=== PATIENT | female | born 1950 | race Caucasian/White ===

== ENCOUNTER 2020-06-04 17:34 | Emergency (ER) | payer MEDICARE, OTHER ==
[~2020-06-04] VITALS: Ht 165.1 cm; Wt 105.9 kg
[2020-06-04 17:35] VITALS: BP 124/110
[2020-06-04] MEDS ORDERED: ADENOSINE 6 MG/2 ML (ADENOCARD) VIAL IV ONE ×2 (17:39→18:00)
--- NOTE | 2020-06-04 17:54 | ED General ---
General Stated Complaint: FAST HEART RATE,CHEST PAIN,EAR ACHE Source of Information: Patient (MAINE BURCH DO) History of Present Illness Date Seen by Provider: Jun 04, 2020 Time Seen by Provider: 17:30 Initial Comments Patient is a 70-year-old female with history as CT presents acute onset palpitations starting 30 minutes prior to ED arrival. Patient states she just d rink a beer was walking around when symptoms began. Heart rate is described as fast and pounding with associated dizziness fatigue and general sense of unease. Reports chest tightness but denies chest pain. No nausea vomiting or sweats. No other acute symptoms or complaints. Patient arrives by private vehicle with a heart rate noted in the 190s. Patient is unsure of current cardiac medications does not believe she has had diagnostic testing Timing/Duration: 1/2 Hour Severity: Severe Modifying Factors: improves with Other Associated Systoms: Headaches, Weakness (MAINE BURCH DO) Allergies and Home Medications Allergies Coded Allergies: No Known Drug Allergies (Unverified , 06/04/20) Home Medications Lisinopril 10 Mg Tablet, 10 MG PO DAILY, (Reported) Metoprolol Succinate 50 Mg Tab.er.24h, 50 MG PO DAILY, (Reported) Patient Home Medication List Home Medication List Reviewed: Yes (MAINE BURCH DO) Review of Systems Review of Systems Constitutional: see HPI EENTM: see HPI Respiratory: see HPI Cardiovascular: see HPI Gastrointestinal: see HPI Genitourinary: see HPI Musculoskeletal: see HPI Skin: see HPI Psychiatric/Neurological: Anxiety Hematologic/Lymphatic: See HPI Immunological/Allergic: no symptoms reported (MAINE BURCH DO) Past Advdypx-Aldmyt-Ubzsur Hx Past Med/Social Hx: Reviewed Nursing Past Med/Soc Hx (MAINE BURCH DO) Patient Social History Recent Foreign Travel: No Contact w/Someone Who Travel: No (MAINE BURCH DO) Physical Exam Vital Signs Vital Signs - First Documented 06/04/20 17:35 Temp 36.6 Pulse 190 Resp 34 B/P (MAP) 124/110 (115) Pulse Ox 96 O2 Delivery Room Air (MARY ELLEN CANO MD) Vital Signs Capillary Refill : (MAINE BURCH DO) Height, Weight, BMI Height: '" Weight: lbs. oz. kg; BMI Method: General Appearance: Anxious Eyes: Bilateral Eye Normal Inspection, Bilateral Eye PERRL, Bilateral Eye EOMI HEENT: PERRL/EOMI, Pharynx Normal, Moist Mucous Membranes Neck: Non Tender, Supple Respiratory: Chest Non Tender, Lungs Clear Cardiovascular: Tachycardia Gastrointestinal: No Pulsatile Mass, Soft Back: Normal Inspection Extremity: Normal Capillary Refill, Normal Range of Motion, No Calf Tenderness Neurologic/Psychiatric: Alert, Oriented x3 Skin: Normal Color, Warm/Dry (MAINE BURCH DO) Progress/Results/Core Measures Suspected Sepsis SIRS Temperature: Pulse: Respiratory Rate: Blood Pressure / Mean: (MAINE BURCH DO) Results/Orders Lab Results Laboratory Tests Test 06/04/20 17:40 Range/Units White Blood Count 14.0 H 4.3-11.0 10^3/uL Red Blood Count 5.53 4.35-5.85 10^6/uL Hemoglobin 15.3 11.5-16.0 G/DL Hematocrit 47 35-52 % Mean Corpuscular Volume 85 80-99 FL Mean Corpuscular Hemoglobin 28 25-34 PG Mean Corpuscular Hemoglobin Concent 33 32-36 G/DL Red Cell Distribution Width 14.3 10.0-14.5 % Platelet Count 372 130-400 10^3/uL Mean Platelet Volume 10.1 7.4-10.4 FL Neutrophils (%) (Auto) 52 42-75 % Lymphocytes (%) (Auto) 38 12-44 % Monocytes (%) (Auto) 8 0-12 % Eosinophils (%) (Auto) 2 0-10 % Basophils (%) (Auto) 0 0-10 % Neutrophils # (Auto) 7.2 1.8-7.8 X 10^3 Lymphocytes # (Auto) 5.3 H 1.0-4.0 X 10^3 Monocytes # (Auto) 1.2 H 0.0-1.0 X 10^3 Eosinophils # (Auto) 0.2 0.0-0.3 10^3/uL Basophils # (Auto) 0.1 0.0-0.1 10^3/uL Neutrophils % (Manual) 49 % Lymphocytes % (Manual) 24 % Monocytes % (Manual) 10 % Eosinophils % (Manual) 1 % Basophils % (Manual) 0 % Band Neutrophils 4 % Atypical Lymphocytes 12 % Blood Morphology Comment NORMAL Sodium Level 142 135-145 MMOL/L Potassium Level 3.7 3.6-5.0 MMOL/L Chloride Level 102 98-107 MMOL/L Carbon Dioxide Level 21 21-32 MMOL/L Anion Gap 19 H 5-14 MMOL/L Blood Urea Nitrogen 13 7-18 MG/DL Creatinine 0.70 0.60-1.30 MG/DL Estimat Glomerular Filtration Rate > 60 BUN/Creatinine Ratio 19 Glucose Level 101 70-105 MG/DL Calcium Level 9.8 8.5-10.1 MG/DL Corrected Calcium 9.5 8.5-10.1 MG/DL Total Bilirubin 0.3 0.1-1.0 MG/DL Aspartate Amino Transf (AST/SGOT) 50 H 5-34 U/L Alanine Aminotransferase (ALT/SGPT) 72 H 0-55 U/L Alkaline Phosphatase 128 40-136 U/L Troponin I < 0.30 <0.30 NG/ML Total Protein 7.5 6.4-8.2 GM/DL Albumin 4.4 3.2-4.5 GM/DL (MARY ELLEN CANO MD) My Orders Orders - MARY ELLEN CANO MD Labetalol Injection (Normodyne Injection (06/04/20 18:30) (MARY ELLEN CANO MD) Medications Given in ED Current Medications Medications Dose Ordered Sig/Zita Route Start Time Stop Time Status Last Admin Dose Admin Adenosine 12 mg ONCE ONCE IV 06/04/20 18:00 06/04/20 18:01 DC 06/04/20 17:42 12 MG (MARY ELLEN CANO MD) Vital Signs/I&O 06/04/20 06/04/20 17:35 17:35 Temp 36.6 Pulse 190 Resp 34 B/P (MAP) 124/110 (115) Pulse Ox 96 O2 Delivery Room Air Room Air (MARY ELLEN CANO MD) Vital Signs/I&O Capillary Refill : (MAINE BURCH DO) Progress Note : Time: 18:37 Progress Note I assumed care from Dr. Burch at shift change at 1800. I agree with his history of present illness and examination as documented above. 70-year-old female status post cardioversion for apparent AV stanley reentrant tachycardia. Had been in this rhythm for about a half an hour prior to arrival. Upon reassessment after cardioversion with adenosine, patient is resting comfortably in no acute distress. She denies any chest pain or shortness of breath and states she feels back to normal. Post-cardioversion EKG nonischemic. Labs and imaging reviewed and without significant evidence of acute process. The patient has remained rather hypertensive and slightly tachycardic post-cardioversion. I discussed with the patient that in view of her advanced age and diastolic hypertension in the setting of a resolved episode of PSVT, that my recommendation was for an observation admission for echocardiography, attention from the pharmacovigilance scientist and further care as indicated. Patient states that she does not want to be admitted to the hospital and would like to go home as she now feels better. I let her know that we would certainly respect her choice on this but that we would ask her to sign paperwork indicating that she was leaving against our advice. I discussed with her, and she understands and was able to restate in her own words, that there was a risk for decompensation, permanent disability and even and leaving the hospital at this time against my advice when admission for observation was recommended. Patient agreed to accept these risks and be wholly ancillary responsible for them in their entirety. I let her know that if she changed her mind and wished to be further evaluated that she simply needed to return and we will be glad to take care of her. Nader palmer signed AMA paperwork and departed the emergency department with a narrow, steady gait. (MARY ELLEN CANO MD) Departure Communication (Admissions) EKG #1: SCT with heart rate in the 180s. EKG #2: Sinus rhythm heart rate 93, anterior Q waves left ventricular Purtscher fee pattern noted. Symptomatically SVT with heart rate 190s dizziness successfully chemically cardioverted with 12 mg of adenosine 1. Patient resting comfortably after chemical cardioversion. Workup in progress. Care will be transitioned to oncoming ERP at 1800. (MAINE BURCH DO) Impression Primary Impression: Supraventricular tachycardia Disposition: HOME, SELF-CARE Condition: Against Medical Advice Departure-Patient Inst. Referrals: NO,LOCAL PHYSICIAN (PCP/Family) Primary Care Physician Patient Instructions: Paroxysmal Supraventricular Tachycardia (DC) Add. Discharge Instructions: As we discussed, you are leaving against our advice at this time after an episode of tachycardia which we resolved with medication. If you change your mind and wished to be further evaluated and treated, you may return at any time and we will be glad to take care of you. MAINE BURCH DO Jun 04, 2020 17:54 MARY ELLEN CANO MD Jun 04, 2020 18:41
[2020-06-04 17:55] LABS: BASOPHILS % (AUTO) 0 % (0-10); EOSINOPHILS % (AUTO) 2 % (0-10); HEMATOCRIT 47 % (35-52); HEMOGLOBIN 15.3 G/DL (11.5-16.0); LYMPHOCYTES % (AUTO) 38 % (12-44); MEAN CORPUSCULAR HEMOGLOBIN 28 PG (25-34); MEAN CORPUSCULAR HGB CONC 33 G/DL (32-36); MEAN CORPUSCULAR VOLUME 85 FL (80-99); MEAN PLATELET VOLUME 10.1 FL (7.4-10.4); MONOCYTES % (AUTO) 8 % (0-12); NEUTROPHILS # (AUTO) 7.2 X 10^3 (1.8-7.8); NEUTROPHILS % (AUTO) 52 % (42-75); PLATELET COUNT 372 10^3/uL (130-400)
[2020-06-04] MEDS ORDERED: METO50TA7 PO (17:55)
[2020-06-04] MEDS ORDERED: LISI10TA2 PO (17:55)
[2020-06-04 17:57] LABS: BASOPHILS # (AUTO) 0.1 10^3/uL (0.0-0.1); EOSINOPHILS # (AUTO) 0.2 10^3/uL (0.0-0.3); LYMPHOCYTES # (AUTO) 5.3 X 10^3 (1.0-4.0); MONOCYTES # (AUTO) 1.2 X 10^3 (0.0-1.0)
[2020-06-04 18:07] LABS: BAND NEUTROPHILS 4 %; NEUTROPHILS % (MANUAL) 49 %
[2020-06-04 18:08] LABS: ATYPICAL LYMPHOCYTES 12 %; BASOPHILS % (MANUAL) 0 %; EOSINOPHILS % (MANUAL) 1 %; LYMPHOCYTES % (MANUAL) 24 %; MONOCYTES % (MANUAL) 10 %; RBC MORPH NORMAL
[2020-06-04 18:14] LABS: BUN/CREATININE RATIO 19; CARBON DIOXIDE 21 MMOL/L (21-32); CHLORIDE 102 MMOL/L (98-107); GFR ESTIMATED > 60; GLUCOSE 101 MG/DL (70-105); POTASSIUM 3.7 MMOL/L (3.6-5.0); SODIUM 142 MMOL/L (135-145)
[2020-06-04 18:15] LABS: ALANINE AMINOTRANSFERASE 72 U/L (0-55); ALBUMIN 4.4 GM/DL (3.2-4.5); ALKALINE PHOSPHATASE 128 U/L (40-136); BILIRUBIN,TOTAL 0.3 MG/DL (0.1-1.0); CALCIUM 9.8 MG/DL (8.5-10.1); TOTAL PROTEIN 7.5 GM/DL (6.4-8.2)
--- NOTE | 2020-06-04 18:20 | NUR ---
Dr Hunter in to see patient after shift change of Toney. Plan to admit was discussed and patient refusing as she has went home after last Cardioversion in 2013.
[2020-06-04] MEDS ORDERED: LABETALOL HCL 20 MG/4 ML VIAL IV ONE (18:30)
--- NOTE | 2020-06-04 18:30 | NUR ---
Dr Hunter reports to HOLD Normodyne. Pt is refusing admission and no administration to be given with improved BP and pt planning on walking out.
--- NOTE | 2020-06-04 18:32 | Diagnostic Imaging Report ---
INDICATION: Chest pain and tachycardia. EXAMINATION: Chest from 06/04/2020. FINDINGS: The cardiomediastinal silhouette is unremarkable. The pulmonary vasculature is within normal limits. The lungs and pleural spaces are clear. IMPRESSION: No evidence of an acute cardiopulmonary process. Dictated by: Dictated on workstation # [id number]
--- NOTE | 2020-06-04 18:35 | NUR ---
Pt up to bathroom to void for second time. Pt states, "I just drank a beer before I came."
== END 2020-06-04 18:45 | disposition left against medical advice (07) ==
LOC: ER FS 17:36
DX: I47.1 Supraventricular tachycardia (principal); F41.9 Anxiety disorder, unspecified
CPT/HCPCS: 36415; 71045; 80053; 84484; 85007; 85027; 93005

== ENCOUNTER 2021-04-14 13:16 | Emergency (ER) | payer MEDICARE, OTHER ==
[~2021-04-14 13:16] MED LIST: LISI10TA25 PO; METO50TA7 PO
--- NOTE | 2021-04-14 13:20 | ED General ---
General Stated Complaint: COVID + | DISORIENTED | SOB | BACK PAIN History of Present Illness Date Seen by Provider: Apr 14, 2021 Time Seen by Provider: 13:20 Initial Comments 70-year-old female presents with some generalized malaise, mild dizziness, mild feeling of shortness of breath. Patient reports that her symptoms started about a week ago with a headache. 5 days ago she tested positive for Covid. Patient has some generalized body aches and just does not feel well. Patient has not been vaccinated. Allergies and Home Medications Allergies Coded Allergies: No Known Drug Allergies (Unverified , 06/04/20) Home Medications Lisinopril 10 Mg Tablet, 10 MG PO DAILY, (Reported) Metoprolol Succinate 50 Mg Tab.er.24h, 50 MG PO DAILY, (Reported) Patient Home Medication List Home Medication List Reviewed: Yes Review of Systems Review of Systems Constitutional: dizziness, malaise, weakness Respiratory: cough, short of breath; No wheezing Cardiovascular: No chest pain, No palpitations Gastrointestinal: No diarrhea; nausea; No vomiting Genitourinary: no symptoms reported Musculoskeletal: see HPI Skin: no symptoms reported Psychiatric/Neurological: Headache Hematologic/Lymphatic: No Symptoms Reported Immunological/Allergic: no symptoms reported Past Esuguze-Nwsetd-Mhrmjt Hx Seasonal Allergies Seasonal Allergies: No Past Medical History Surgeries: Yes (Bilateral Mastectomy with reconstruction, L Axilla lymph node bx) Breast, Hysterectomy Respiratory: No Cardiac: Yes (SVT conversion 2013) 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, Irregular Heartbeat Neurological: No 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 oz. 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 Norm as Tested Skin: Normal Color, Warm/Dry Focused Exam Lactate Level 04/14/21 13:31: Lactic Acid Level 1.67 Lactic Acid Level Laboratory Tests Test 04/14/21 13:31 Lactic Acid Level 1.67 MMOL/L (0.50-2.00) Progress/Results/Core Measures Suspected Sepsis SIRS Temperature: Pulse: Respiratory Rate: Laboratory Tests 04/14/21 13:31: White Blood Count 4.8 Blood Pressure / Mean: 04/14/21 13:31: Lactic Acid Level 1.67 Laboratory Tests 04/14/21 13:31: Creatinine 1.36H, Platelet Count 164, Total Bilirubin 0.3 Results/Orders Lab Results Laboratory Tests Test 04/14/21 13:31 04/14/21 13:37 Range/Units White Blood Count 4.8 4.3-11.0 10^3/uL Red Blood Count 5.79 4.35-5.85 10^6/uL Hemoglobin 15.9 11.5-16.0 G/DL Hematocrit 48 35-52 % Mean Corpuscular Volume 83 80-99 FL Mean Corpuscular Hemoglobin 27 25-34 PG Mean Corpuscular Hemoglobin Concent 33 32-36 G/DL Red Cell Distribution Width 14.9 H 10.0-14.5 % Platelet Count 164 130-400 10^3/uL Mean Platelet Volume 11.2 H 7.4-10.4 FL Immature Granulocyte % (Auto) 0 % Neutrophils (%) (Auto) 59 42-75 % Lymphocytes (%) (Auto) 28 12-44 % Monocytes (%) (Auto) 13 H 0-12 % Eosinophils (%) (Auto) 0 0-10 % Basophils (%) (Auto) 0 0-10 % Neutrophils # (Auto) 2.8 1.8-7.8 X 10^3 Lymphocytes # (Auto) 1.3 1.0-4.0 X 10^3 Monocytes # (Auto) 0.6 0.0-1.0 X 10^3 Eosinophils # (Auto) 0.0 0.0-0.3 10^3/uL Basophils # (Auto) 0.0 0.0-0.1 10^3/uL Immature Granulocyte # (Auto) 0.0 0.0-0.1 10^3/uL Sodium Level 136 135-145 MMOL/L Potassium Level 4.3 3.6-5.0 MMOL/L Chloride Level 100 98-107 MMOL/L Carbon Dioxide Level 22 21-32 MMOL/L Anion Gap 14 5-14 MMOL/L Blood Urea Nitrogen 17 7-18 MG/DL Creatinine 1.36 H 0.60-1.30 MG/DL Estimat Glomerular Filtration Rate 39 BUN/Creatinine Ratio 13 Glucose Level 115 H 70-105 MG/DL Lactic Acid Level 1.67 0.50-2.00 MMOL/L Calcium Level 9.1 8.5-10.1 MG/DL Corrected Calcium 9.2 8.5-10.1 MG/DL Total Bilirubin 0.3 0.1-1.0 MG/DL Aspartate Amino Transf (AST/SGOT) 38 H 5-34 U/L Alanine Aminotransferase (ALT/SGPT) 26 0-55 U/L Alkaline Phosphatase 76 40-136 U/L Total Protein 7.2 6.4-8.2 GM/DL Albumin 3.9 3.2-4.5 GM/DL Urine Color DARK YELLOW Urine Clarity SLIGHTLY CLOUDY Urine pH 5.5 5-9 Urine Specific Peetz >=1.030 1.016-1.022 Urine Protein TRACE H NEGATIVE Urine Glucose (UA) NEGATIVE NEGATIVE Urine Ketones TRACE H NEGATIVE Urine Nitrite NEGATIVE NEGATIVE Urine Bilirubin 1+ H NEGATIVE Urine Urobilinogen 1.0 < = 1.0 MG/DL Urine Leukocyte Esterase TRACE H NEGATIVE Urine RBC (Auto) NEGATIVE NEGATIVE Urine RBC 5-10 H /HPF Urine WBC 10-25 H /HPF Urine Squamous Epithelial Cells >50 H /HPF Urine Crystals NONE /LPF Urine Bacteria MODERATE H /HPF Urine Casts NONE /LPF Urine Mucus LARGE H /LPF Urine Culture Indicated NO My Orders Orders - SOOD,BRYAN L DO Cbc With Automated Diff (04/14/21 13:25) Comprehensive Metabolic Panel (04/14/21 13:25) Lactic Acid Analyzer (04/14/21 13:25) Ua Culture If Indicated (04/14/21 13:25) Lactated Ringers (Lr 1000 Ml Iv Solution (04/14/21 13:25) Dexamethasone Injection (Decadron Inje (04/14/21 13:30) Chest 1 View Ap/Pa Only (04/14/21 13:26) Medications Given in ED Current Medications Medications Dose Ordered Sig/Zita Route Start Time Stop Time Status Last Admin Dose Admin Dexamethasone Sodium Phosphate 10 mg ONCE ONCE IV 04/14/21 13:30 04/14/21 13:31 DC 04/14/21 13:33 10 MG Vital Signs/I&O 04/14/21 04/14/21 13:18 14:50 Temp 35.7 Pulse 63 57 Resp 16 16 B/P (MAP) 132/99 (110) 144/74 Pulse Ox 97 94 Capillary Refill : Progress Note : Progress Note Patient with known coronavirus. Patient was stable vitals and findings. Discussed with patient supportive care, return the ER as needed, follow-up with her primary care provider as needed. Patient stable will be discharged Diagnostic Imaging Diagonstic Imaging: Xray Plain Films/CT/US/NM/MRI: chest Comments No acute findings or infiltrate noted Departure Impression Primary Impression: COVID-19 Disposition: 01 HOME, SELF-CARE Condition: Stable Departure-Patient Inst. Referrals: NO,LOCAL PHYSICIAN (PCP/Family) Primary Care Physician Patient Instructions: COVID-19 ED Add. Discharge Instructions: Return to the ER with any concerns such as shortness of breath or worsening condition Follow-up with your primary care provider as needed or if not improving over the next 5 to 6 days. BRYAN SOOD DO Apr 14, 2021 13:20
[2021-04-14] MEDS ORDERED: LACTATED RINGERS 1,000 ML IV STA (13:25)
[2021-04-14 13:34] LABS: BASOPHILS % (AUTO) 0 % (0-10); EOSINOPHILS % (AUTO) 0 % (0-10); HEMATOCRIT 48 % (35-52); HEMOGLOBIN 15.9 G/DL (11.5-16.0); LYMPHOCYTES # (AUTO) 1.3 X 10^3 (1.0-4.0); LYMPHOCYTES % (AUTO) 28 % (12-44); MEAN CORPUSCULAR HEMOGLOBIN 27 PG (25-34); MEAN CORPUSCULAR HGB CONC 33 G/DL (32-36); MEAN CORPUSCULAR VOLUME 83 FL (80-99); MEAN PLATELET VOLUME 11.2 FL (7.4-10.4); MONOCYTES # (AUTO) 0.6 X 10^3 (0.0-1.0); MONOCYTES % (AUTO) 13 % (0-12); NEUTROPHILS # (AUTO) 2.8 X 10^3 (1.8-7.8); NEUTROPHILS % (AUTO) 59 % (42-75); PLATELET COUNT 164 10^3/uL (130-400); WHITE BLOOD COUNT 4.8 10^3/uL (4.3-11.0)
[2021-04-14 13:38] LABS: CLARITY,URINE SLIGHTLY CLOUDY; COLOR,URINE DARK YELLOW
[2021-04-14 13:43] LABS: BACTERIA,URINE MODERATE /HPF; BILIRUBIN,URINE 1+ (NEGATIVE); GLUCOSE, URINE (UA) NEGATIVE (NEGATIVE); KETONES,URINE TRACE (NEGATIVE); LEUKOCYTE ESTERASE ,URINE TRACE (NEGATIVE); NITRITE,URINE NEGATIVE (NEGATIVE); PH,URINE 5.5 (5-9); PROTEIN,URINE TRACE (NEGATIVE); SQUAMOUS EPITHELIAL CELL,UR >50 /HPF
[2021-04-14 13:53] LABS: ALBUMIN 3.9 GM/DL (3.2-4.5); BILIRUBIN,TOTAL 0.3 MG/DL (0.1-1.0); CALCIUM 9.1 MG/DL (8.5-10.1); CREATININE SERUM 1.36 MG/DL (0.60-1.30); POTASSIUM 4.3 MMOL/L (3.6-5.0); TOTAL PROTEIN 7.2 GM/DL (6.4-8.2)
[2021-04-14 14:50] VITALS: BP 144/74
== END 2021-04-14 14:51 | disposition home or self-care (01) ==
LOC: EDUNIT# 13:16 → ER FS 13:18
DX: U07.1 COVID-19 (principal); I10 Essential (primary) hypertension; Z79.899 Other long term (current) drug therapy
CPT/HCPCS: 36415; 71045; 80053; 81000; 83605; 85025

== ENCOUNTER 2021-04-16 19:19 | Inpatient (IN) | payer MEDICARE, OTHER ==
[~2021-04-16] VITALS: Ht 165.1 cm; Wt 100.1 kg
--- NOTE | 2021-04-16 19:22 | ED General ---
General Stated Complaint: COVID History of Present Illness Date Seen by Provider: Apr 16, 2021 Time Seen by Provider: 19:22 Initial Comments Patient presenting to emergency department via EMS for evaluation of altered mental status. Patient reportedly has only been out of bed one time today per a friend and has not been drinking much fluids and was sent here for increased confusion. Patient reportedly started having Covid symptoms 7 days ago and tested +5 days ago and was seen in this emergency department 2 days ago. She had normal work-up and vital signs at that time and was sent home. Today patient is more confused that she is usually alert and oriented x3 but she was confused on date as she did not know the year which is very abnormal for her. Staff who took care of her 2 days ago said that she is much more confused than last time as she does not know her medications and date. She denies any pain fevers nausea vomiting or diarrhea. She reportedly had an oxygen saturation of 90% for EMS and she was put on 4 L. She is in no acute distress with normal vital signs with an oxygen saturation of 94% on room air. Allergies and Home Medications Allergies Coded Allergies: No Known Drug Allergies (Unverified , 06/04/20) Home Medications Lisinopril 10 Mg Tablet, 10 MG PO DAILY, (Reported) Metoprolol Succinate 50 Mg Tab.er.24h, 50 MG PO DAILY, (Reported) Patient Home Medication List Home Medication List Reviewed: Yes Review of Systems Review of Systems Constitutional: no symptoms reported EENTM: no symptoms reported Respiratory: no symptoms reported Cardiovascular: no symptoms reported Gastrointestinal: no symptoms reported Musculoskeletal: no symptoms reported Skin: no symptoms reported Psychiatric/Neurological: Other (confusion) All Other Systems Reviewed Negative Unless Noted: Yes Past Gmgtimy-Xgdqrr-Ufgxuh Hx Seasonal Allergies Seasonal Allergies: No Past Medical History Surgeries: Yes (Bilateral Mastectomy with reconstruction, L Axilla lymph node bx) Breast, Hysterectomy Respiratory: No Cardiac: Yes (SVT conversion 2013) 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, Irregular Heartbeat 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 oz. kg; 38.00 BMI Method: General Appearance: No Apparent Distress HEENT: PERRL/EOMI Neck: Supple Respiratory: Lungs Clear, No Respiratory Distress Cardiovascular: Regular Rate, Rhythm Gastrointestinal: Non Tender, Soft Extremity: Normal Capillary Refill Neurologic/Psychiatric: Alert, Disoriented Skin: Warm/Dry Focused Exam Lactate Level 04/16/21 19:27: Lactic Acid Level 1.08 Lactic Acid Level Laboratory Tests Test 04/16/21 19:27 Lactic Acid Level 1.08 MMOL/L (0.50-2.00) Progress/Results/Core Measures Suspected Sepsis SIRS Temperature: Pulse: Respiratory Rate: Laboratory Tests 04/16/21 19:27: White Blood Count 4.2L Blood Pressure / Mean: 04/16/21 19:27: Lactic Acid Level 1.08 Laboratory Tests 04/16/21 19:27: Creatinine 0.81, INR Comment 1.0, Platelet Count 163, Total Bilirubin 0.4 Results/Orders Lab Results Laboratory Tests Test 04/16/21 19:27 04/16/21 19:56 04/16/21 20:28 Range/Units White Blood Count 4.2 L 4.3-11.0 10^3/uL Red Blood Count 5.18 4.35-5.85 10^6/uL Hemoglobin 14.3 11.5-16.0 G/DL Hematocrit 43 35-52 % Mean Corpuscular Volume 83 80-99 FL Mean Corpuscular Hemoglobin 28 25-34 PG Mean Corpuscular Hemoglobin Concent 33 32-36 G/DL Red Cell Distribution Width 14.7 H 10.0-14.5 % Platelet Count 163 130-400 10^3/uL Mean Platelet Volume 11.6 H 7.4-10.4 FL Immature Granulocyte % (Auto) 1 % Neutrophils (%) (Auto) 59 42-75 % Lymphocytes (%) (Auto) 28 12-44 % Monocytes (%) (Auto) 13 H 0-12 % Eosinophils (%) (Auto) 0 0-10 % Basophils (%) (Auto) 0 0-10 % Neutrophils # (Auto) 2.5 1.8-7.8 X 10^3 Lymphocytes # (Auto) 1.2 1.0-4.0 X 10^3 Monocytes # (Auto) 0.6 0.0-1.0 X 10^3 Eosinophils # (Auto) 0.0 0.0-0.3 10^3/uL Basophils # (Auto) 0.0 0.0-0.1 10^3/uL Immature Granulocyte # (Auto) 0.0 0.0-0.1 10^3/uL Prothrombin Time 13.4 12.2-14.7 SEC INR Comment 1.0 0.8-1.4 Activated Partial Thromboplast Time 26 24-35 SEC D-Dimer 0.92 H 0.00-0.49 UG/ML Sodium Level 136 135-145 MMOL/L Potassium Level 4.8 3.6-5.0 MMOL/L Chloride Level 101 98-107 MMOL/L Carbon Dioxide Level 21 21-32 MMOL/L Anion Gap 14 5-14 MMOL/L Blood Urea Nitrogen 11 7-18 MG/DL Creatinine 0.81 0.60-1.30 MG/DL Estimat Glomerular Filtration Rate 70 BUN/Creatinine Ratio 14 Glucose Level 85 70-105 MG/DL Lactic Acid Level 1.08 0.50-2.00 MMOL/L Calcium Level 8.6 8.5-10.1 MG/DL Corrected Calcium 9.1 8.5-10.1 MG/DL Total Bilirubin 0.4 0.1-1.0 MG/DL Aspartate Amino Transf (AST/SGOT) 35 H 5-34 U/L Alanine Aminotransferase (ALT/SGPT) 18 0-55 U/L Alkaline Phosphatase 62 40-136 U/L Troponin I < 0.30 <0.30 NG/ML Pro-B-Type Natriuretic Peptide 295.4 H <75.0 PG/ML Total Protein 6.7 6.4-8.2 GM/DL Albumin 3.4 3.2-4.5 GM/DL Urine Color YELLOW Urine Clarity CLEAR Urine pH 6.5 5-9 Urine Specific [place] 1.010 L 1.016-1.022 Urine Protein NEGATIVE NEGATIVE Urine Glucose (UA) NEGATIVE NEGATIVE Urine Ketones 1+ H NEGATIVE Urine Nitrite NEGATIVE NEGATIVE Urine Bilirubin 1+ H NEGATIVE Urine Urobilinogen 0.2 < = 1.0 MG/DL Urine Leukocyte Esterase NEGATIVE NEGATIVE Urine RBC (Auto) NEGATIVE NEGATIVE Urine RBC 0-2 /HPF Urine WBC 0-2 /HPF Urine Squamous Epithelial Cells 0-2 /HPF Urine Crystals NONE /LPF Urine Bacteria NEGATIVE /HPF Urine Casts NONE /LPF Urine Mucus NEGATIVE /LPF Urine Yeast FEW H /HPF Urine Culture Indicated NO Blood Gas Puncture Site LT BRACHIAL Blood Gas Patient Temperature 99 Arterial Blood pH 7.43 7.37-7.43 Arterial Blood Partial Pressure CO2 30 L 35-45 MMHG Arterial Blood Partial Pressure O2 78 L 79-93 MMHG Arterial Blood HCO3 20 L 23-27 MMOL/L Arterial Blood Total CO2 20.8 L 21.0-31.0 MMOL/L Arterial Blood Oxygen Saturation 96 94-100 % Arterial Blood Base Excess -3.4 L -2.5-2.5 MMOL/L Ryan Test NA Blood Gas Ventilator Setting NO Blood Gas Inspired Oxygen ROOM AIR My Orders Orders - CHITRA MONACO DO Iv/Invasive Line Insertion .IV start (04/16/21 19:22) Arterial Blood Gas (04/16/21 19:22) Cbc With Automated Diff (04/16/21 19:22) Blood Culture (04/16/21 19:22) Comprehensive Metabolic Panel (04/16/21 19:22) Fibrin Degradation Products (04/16/21 19:22) Ekg Tracing (04/16/21 19:22) Chest 1 View Ap/Pa Only (04/16/21 19:22) Ua Culture If Indicated (04/16/21 19:22) Troponin I Fs (04/16/21 19:22) Partial Thromboplastin Time (04/16/21 19:22) Probnp Fs (04/16/21 19:22) Protime With Inr (04/16/21 19:22) Lactic Acid Analyzer (04/16/21 19:22) Ns Iv 1000 Ml (Sodium Chloride 0.9%) (04/16/21 19:30) Dexamethasone Injection (Decadron Injec (04/16/21 19:30) Dexamethasone Injection (Decadron Inje (04/16/21 19:30) Blood Culture (04/16/21 19:37) Ct Head Wo (04/16/21 19:49) Ct Angio Chest W (04/16/21 20:40) Iohexol Injection (Omnipaque 350 Mg/Ml 1 (04/16/21 20:45) Received Contrast (Hold Metformin- Contr (04/16/21 20:45) Ns (Ivpb) (Sodium Chloride 0.9% Ivpb Bag (04/16/21 20:45) Medications Given in ED Current Medications Medications Dose Ordered Sig/Zita Route Start Time Stop Time Status Last Admin Dose Admin Dexamethasone Sodium Phosphate 6 mg ONCE ONCE IV 04/16/21 19:30 04/16/21 19:31 DC 04/16/21 19:39 6 MG Vital Signs/I&O 04/16/21 19:20 Temp 37.5 Pulse 77 Resp 20 B/P (MAP) 143/103 (116) Pulse Ox 92 O2 Delivery Room Air Capillary Refill : Progress Note : Progress Note Patient with worsened confusion in the setting of positive Covid test. CVA is a consideration but she is moving all extremities with good strength and there does not appear to be a focal deficit. I will check labs imaging treat with IV fluids Decadron and reassess. Imaging shows signs of Covid pneumonia. She is slightly hypoxic but not requiring oxygen at this time. Decadron has been given and I spoke to Dr. Segundo and we will plan on giving remdesivir given she is in the timeframe as her symptoms started 1 week ago. She will require admission given her acute encephalopathy in the setting of her pneumonia. Patient will be transferred in stable condition to [facility]. Critical Care Note Critical Care Total Time (minutes) 32 Departure Impression Primary Impression: Pneumonia due to COVID-19 virus Additional Impression: Acute encephalopathy Disposition: ADMITTED INPATIENT Condition: Stable Transfer Transfer Reason: Exceeds level of care Transfer Facility: [facility] Method of Transfer: EMS Departure-Patient Inst. Referrals: NO,LOCAL PHYSICIAN (PCP/Family) Primary Care Physician CHITRA MONACO DO Apr 16, 2021 19:22
[2021-04-16] MEDS ORDERED: NS IV 1000 ML 1,000 ML IV SCH (19:30)
[2021-04-16 19:43] LABS: WHITE BLOOD COUNT 4.2 10^3/uL (4.3-11.0)
[2021-04-16 19:44] LABS: BASOPHILS % (AUTO) 0 % (0-10); EOSINOPHILS % (AUTO) 0 % (0-10); HEMATOCRIT 43 % (35-52); HEMOGLOBIN 14.3 G/DL (11.5-16.0); LYMPHOCYTES # (AUTO) 1.2 X 10^3 (1.0-4.0); LYMPHOCYTES % (AUTO) 28 % (12-44); MEAN CORPUSCULAR HEMOGLOBIN 28 PG (25-34); MEAN CORPUSCULAR HGB CONC 33 G/DL (32-36); MEAN CORPUSCULAR VOLUME 83 FL (80-99); MEAN PLATELET VOLUME 11.6 FL (7.4-10.4); MONOCYTES # (AUTO) 0.6 X 10^3 (0.0-1.0); MONOCYTES % (AUTO) 13 % (0-12); NEUTROPHILS # (AUTO) 2.5 X 10^3 (1.8-7.8); NEUTROPHILS % (AUTO) 59 % (42-75); PLATELET COUNT 163 10^3/uL (130-400)
--- NOTE | 2021-04-16 19:53 | Diagnostic Imaging Report ---
EXAMINATION: Chest radiograph, portable AP view. DATE: 04/16/2021 7:45 PM INDICATION: 70-year-old female, shortness of breath. Covid positive. COMPARISON: April 14, 2021. FINDINGS: Stable overall appearance of the cardiomediastinal silhouette. There is no identified pneumothorax. There is nonspecific left mid and lower lung zone consolidation. There are subtle opacities in the right lung base. Findings are increased since the comparison exam. There are also increased opacities in left upper lobe. IMPRESSION: 1. Nonspecific left mid and lower lung zone consolidation and subtle right basilar airspace consolidation with opacities in the left upper lobe which may reflect multifocal pneumonia and/or pneumonitis. Other alveolar consolidative processes are also considered. Dictated by: Dictated on workstation # [id number]
[2021-04-16 20:33] LABS: POTASSIUM 4.8 MMOL/L (3.6-5.0); SODIUM 136 MMOL/L (135-145)
[2021-04-16 20:34] LABS: ALANINE AMINOTRANSFERASE 18 U/L (0-55); ALBUMIN 3.4 GM/DL (3.2-4.5); ALKALINE PHOSPHATASE 62 U/L (40-136); BILIRUBIN,TOTAL 0.4 MG/DL (0.1-1.0); BUN/CREATININE RATIO 14; CALCIUM 8.6 MG/DL (8.5-10.1); CARBON DIOXIDE 21 MMOL/L (21-32); CHLORIDE 101 MMOL/L (98-107); CREATININE SERUM 0.81 MG/DL (0.60-1.30); GFR ESTIMATED 70; GLUCOSE 85 MG/DL (70-105); TOTAL PROTEIN 6.7 GM/DL (6.4-8.2)
[2021-04-16 20:35] LABS: ABG PCO2 30 MMHG (35-45); ABG PH 7.43 (7.37-7.43); ABG PO2 78 MMHG (79-93); ABG TCO2 20.8 MMOL/L (21.0-31.0)
[2021-04-16 20:36] LABS: ABG BASE EXCESS -3.4 MMOL/L (-2.5-2.5); ABG OXYGEN SATURATION 96 % (94-100)
[2021-04-16 20:37] LABS: INSPIRED O2 ROOM AIR; PATIENT TEMP 99; VENTILATOR NO
[2021-04-16 20:38] LABS: FIBRIN DEGRADATION PRODUCTS 0.92 UG/ML (0.00-0.49); PROTHROMBIN TIME PATIENT 13.4 SEC (12.2-14.7)
[2021-04-16 20:44] LABS: CLARITY,URINE CLEAR; COLOR,URINE YELLOW; PH,URINE 6.5 (5-9); PROTEIN,URINE NEGATIVE (NEGATIVE)
[2021-04-16 20:45] LABS: BACTERIA,URINE NEGATIVE /HPF; BILIRUBIN,URINE 1+ (NEGATIVE); GLUCOSE, URINE (UA) NEGATIVE (NEGATIVE); KETONES,URINE 1+ (NEGATIVE); LEUKOCYTE ESTERASE ,URINE NEGATIVE (NEGATIVE); NITRITE,URINE NEGATIVE (NEGATIVE); RBC,URINE 0-2 /HPF; SQUAMOUS EPITHELIAL CELL,UR 0-2 /HPF; WBC,URINE 0-2 /HPF
[2021-04-16] MEDS ORDERED: IOHEXOL 350 MG/ML 150 ML (OMNIPAQUE 350) VIAL IV ONE (20:45)
[2021-04-16] MEDS ORDERED: HOLD METFORMIN - RECEIVED CONTRAST 20 ML VIAL IV SCH (20:45)
[2021-04-16] MEDS ORDERED: NS 100 ML (IVPB) BAG IV ONE (20:45)
[2021-04-16 20:48] LABS: YEAST,URINE FEW /HPF
--- NOTE | 2021-04-16 21:24 | Diagnostic Imaging Report ---
PROCEDURE: CT head without contrast. TECHNIQUE: Multiple contiguous axial images were obtained through the brain without the use of intravenous contrast. Auto Exposure Controls were utilized during the CT exam to meet ALARA standards for radiation dose reduction. DATE: April 16, 2021. COMPARISON: None. INDICATION: 70-year-old female, altered mental status. FINDINGS: There are areas of low-attenuation in the periventricular and subcortical white matter which are not clearly symmetric such as in the left frontal lobe subcortical white matter on axial image 21. The ventricles and cerebral spinal fluid spaces are of normal size and configuration for the patient's age. There is no mass effect or midline shift. There is no acute intracranial hemorrhage. Right frontal sinus is hypoplastic. The additional visualized portions of the paranasal sinuses, mastoid air cells, and middle ears are well-aerated. IMPRESSION: 1. Areas of low-attenuation in the periventricular and subcortical white matter including one focus in particular in the left frontal subcortical white matter which is not particularly symmetric. Although this could relate to mild to moderate findings of chronic small vessel ischemic disease, other etiologies are in the differential diagnosis. Consider further evaluation with MRI brain without and with intravenous contrast. Dictated by: Dictated on workstation # [id number]
--- NOTE | 2021-04-16 21:31 | Diagnostic Imaging Report ---
PROCEDURE: CT angiography of the chest with contrast. TECHNIQUE: Multiple contiguous axial images were obtained through the chest after uneventful bolus administration of intravenous contrast. 3D reconstructed CTA MIP acquisitions were also performed. Auto Exposure Controls were utilized during the CT exam to meet ALARA standards for radiation dose reduction. DATE: April 16, 2021. COMPARISON: Chest radiograph April 16, 2021. INDICATION: 70-year-old female, shortness of breath. Covid positive. History of breast cancer and melanoma. FINDINGS: There is patchy multifocal bilateral alveolar consolidation. There are subcentimeter calcified right lower lobe granulomas. There is no identified noncalcified pulmonary nodule. There is no identified lung mass. There is no pneumothorax. There is no pleural effusion. The central airways are patent. There is no identified pulmonary embolus. The main pulmonary artery is normal in caliber. The heart is borderline enlarged. There is no pericardial effusion. There is no identified abnormally enlarged noncalcified mediastinal, hilar, or axillary lymph node meeting CT size criteria for adenopathy. There are bilateral breast implants. There is diffuse fatty infiltration of the liver. There is a small hiatal hernia. There are degenerative changes of the spine. There is no identified acute bony abnormality. IMPRESSION: CT CHEST. 1. Patchy multifocal bilateral lung consolidation most consistent with provided history of Covid 19 infection and multifocal pneumonia/pneumonitis. 2. No identified pulmonary embolus. Dictated by: Dictated on workstation # [id number]
[2021-04-17] VITALS (7 sets, daily range): BP systolic 156–189; BP diastolic 80–130
[2021-04-17] MEDS ORDERED: CATHETER FLUSH 10 ML SYR IV PRN (01:30)
[2021-04-17 04:18] LABS: BASOPHILS % (AUTO) 0 % (0-10); EOSINOPHILS % (AUTO) 0 % (0-10); HEMATOCRIT 46 % (35-52); HEMOGLOBIN 15.2 g/dL (11.5-16.0); LYMPHOCYTES # (AUTO) 0.8 10^3/uL (1.0-4.0); LYMPHOCYTES % (AUTO) 29 % (12-44); MEAN CORPUSCULAR HEMOGLOBIN 28 pg (25-34); MEAN CORPUSCULAR HGB CONC 33 g/dL (32-36); MEAN CORPUSCULAR VOLUME 84 fL (80-99); MEAN PLATELET VOLUME 11.2 fL (9.0-12.2); MONOCYTES # (AUTO) 0.2 10^3/uL (0.0-1.0); MONOCYTES % (AUTO) 6 % (0-12); NEUTROPHILS # (AUTO) 1.7 10^3/uL (1.8-7.8); NEUTROPHILS % (AUTO) 64 % (42-75); PLATELET COUNT 172 10^3/uL (130-400); WHITE BLOOD COUNT 2.7 10^3/uL (4.3-11.0)
[2021-04-17 04:29] LABS: ALBUMIN 3.8 GM/DL (3.2-4.5); POTASSIUM 4.2 MMOL/L (3.6-5.0)
[2021-04-17 04:30] LABS: CALCIUM 8.9 MG/DL (8.5-10.1)
[2021-04-17 04:31] LABS: TOTAL PROTEIN 6.9 GM/DL (6.4-8.2)
[2021-04-17 04:33] LABS: BILIRUBIN,TOTAL 0.5 MG/DL (0.1-1.0)
[2021-04-17 04:35] LABS: CREATININE SERUM 0.72 MG/DL (0.60-1.30)
[2021-04-17] MEDS ORDERED: REMDESIVIR 200 MG/NS 250 ML IVPB IV ONE ×2 (07:00)
[2021-04-17] MEDS: CATHETER FLUSH 10 ML SYR IV SCH ×3 (07:01→21:21)
--- NOTE | 2021-04-17 09:09 | History & Physical-Hospitalist ---
History of Present Illness HPI/Chief Complaint Pt is a 70yoCF with a PMH of HTn and breast cancer s/p masectomy who presented to the ER due to confusion. She doesn't recall much of the ER visit but was able to tell me that she was diagnosed with COVID a couple of days ago and started to feel poorly a few days ago. She has shortness of breath, confusion, loss of tas te but not nausea or diarrhea. This morning her only complaint is that her bed is flat and she would like to sit up but the controls are locked. I did speak with her daughter, Yohana, as well. Source: patient Date Seen 04/17/21 Time Seen by a Provider: 08:46 Attending Physician Sonido Segundo MD PCP David Levi MD Referring Physician Date of Admission Apr 17, 2021 at 00:40 Home Medications & Allergies Home Medications Reviewed patient Home Medication Reconciliation performed by pharmacy medication reconciliations staking technician and/or nursing. Patients Allergies have been reviewed. Allergies Allergies Coded Allergies No Known Drug Allergies (Unverified06/04/20) Past Niossmn-Rehrbu-Vpnftq Hx Patient Social History Tobacco Use?: No Smoking Status: Never a Smoker Use of E-Cig and/or Vaping dev: No Substance use?: No Alcohol Use?: No Pt feels they are or have been: No Immunizations Up To Date Tetanus Booster (TDap): Unknown Seasonal Allergies Seasonal Allergies: No Current Status status: No status: No Advance Directives: No Communicates: Verbally Primary Language: South Korean Preferred Spoken Language: [place] Korean Is interpretation needed?: No Sensory deficits: Vision impairment Implanted or Applied Medical D: None Past Medical History Surgeries: Breast, Hysterectomy 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, 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, 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 Did You Recieve Any Treatments: Yes What Type of Treatment Did You: Surgical Intervention Blood Disorders: No Family Medical History Reviewed Nursing Family Hx No Pertinent Family Hx Review of Systems Constitutional: No chills, No fever; malaise EENTM: no symptoms reported Respiratory: No short of breath Cardiovascular: No chest pain Gastrointestinal: No abdominal pain, No constipation, No diarrhea; loss of appetite; No nausea, No vomiting Genitourinary: no symptoms reported Musculoskeletal: no symptoms reported Skin: no symptoms reported Psychiatric/Neurological: See HPI Physical Exam Physical Exam Vital Signs Vital Signs - First Documented 04/16/21 04/17/21 19:20 11:23 Temp 37.5 Pulse 77 Resp 20 B/P (MAP) 143/103 (116) Pulse Ox 92 O2 Delivery Room Air O2 Flow Rate 3.50 Capillary Refill : Less Than 3 Seconds Height, Weight, BMI Height: '" Weight: lbs. oz. kg; 37.42 BMI Method: General Appearance: No Apparent Distress, WD/WN, Obese HEENT: PERRL/EOMI, Moist Mucous Membranes; No Scleral Icterus (L), No Scleral Icterus (R) Neck: Normal Inspection, Supple Respiratory: Lungs Clear, No Accessory Muscle Use, Other (on 3lpm NC) Cardiovascular: Regular Rate, Rhythm, No Murmur Gastrointestinal: Normal Bowel Sounds, Non Tender, Soft Extremity: Normal Capillary Refill, No Calf Tenderness, No Pedal Edema Neurologic/Psychiatric: Alert, Oriented x3, Normal Mood/Affect Skin: Normal Color, Warm/Dry Results Results/Procedures Labs Laboratory Tests 04/16/21 19:27 04/17/21 04:05 Patient resulted labs reviewed. Imaging: Reviewed Imaging Report Imaging [facility] [place], [place] NAME: GAVINO [facility]RO[facility] REC#: [id number] PT STATUS: REG ER : 1950 PHYSICIAN: CHITRA MONACO DO ADMIT DATE: 04/16/21/ER FS Signed Date of Exam:04/16/21 CHEST 1 VIEW AP/PA ONLY EXAMINATION: Chest radiograph, portable AP view. DATE: 04/16/2021 7:45 PM INDICATION: 70-year-old female, shortness of breath. Covid positive. COMPARISON: April 14, 2021. FINDINGS: Stable overall appearance of the cardiomediastinal silhouette. There is no identified pneumothorax. There is nonspecific left mid and lower lung zone consolidation. There are subtle opacities in the right lung base. Findings are increased since the comparison exam. There are also increased opacities in left upper lobe. IMPRESSION: 1. Nonspecific left mid and lower lung zone consolidation and subtle right basilar airspace consolidation with opacities in the left upper lobe which may reflect multifocal pneumonia and/or pneumonitis. Other alveolar consolidative processes are also considered. Dictated by: Dictated on workstation # [id number] Dict: 04/16/211946 Trans: 04/16/212131 [facility] [id number] Interpreted by: BISI MCQUEEN MD Electronically signed by: BISI MCQUEEN MD 04/16/212131 [facility] [place] NAME: GAVINO [facility]RO[facility] REC#: [id number] PT STATUS: REG ER : 1950 PHYSICIAN: CHITRA MONACO DO ADMIT DATE: 04/16/21/ER FS Signed Date of Exam:04/16/21 CT HEAD WO PROCEDURE: CT head without contrast. TECHNIQUE: Multiple contiguous axial images were obtained through the brain without the use of intravenous contrast. Auto Exposure Controls were utilized during the CT exam to meet ALARA standards for radiation dose reduction. DATE: April 16, 2021. COMPARISON: None. INDICATION: 70-year-old female, altered mental status. FINDINGS: There are areas of low-attenuation in the periventricular and subcortical white matter which are not clearly symmetric such as in the left frontal lobe subcortical white matter on axial image 21. The ventricles and cerebral spinal fluid spaces are of normal size and configuration for the patient's age. There is no mass effect or midline shift. There is no acute intracranial hemorrhage. Right frontal sinus is hypoplastic. The additional visualized portions of the paranasal sinuses, mastoid air cells, and middle ears are well-aerated. IMPRESSION: 1. Areas of low-attenuation in the periventricular and subcortical white matter including one focus in particular in the left frontal subcortical white matter which is not particularly symmetric. Although this could relate to mild to moderate findings of chronic small vessel ischemic disease, other etiologies are in the differential diagnosis. Consider further evaluation with MRI brain without and with intravenous contrast. Dictated by: Dictated on workstation # [id number] Dict: 04/16/212119 Trans: 04/16/212131 [facility] [id number] Interpreted by: BISI MCQUEEN MD Electronically signed by: BISI MCQUEEN MD 04/16/212131 [facility] [place] NAME: GAVINO [facility] REC#: [id number] PT STATUS: REG ER : 1950 PHYSICIAN: CHITRA MONACO DO ADMIT DATE: 04/16/21/ER FS Signed Date of Exam:04/16/21 CT ANGIO CHEST W PROCEDURE: CT angiography of the chest with contrast. TECHNIQUE: Multiple contiguous axial images were obtained through the chest after uneventful bolus administration of intravenous contrast. 3D reconstructed CTA MIP acquisitions were also performed. Auto Exposure Controls were utilized during the CT exam to meet ALARA standards for radiation dose reduction. DATE: April 16, 2021. COMPARISON: Chest radiograph April 16, 2021. INDICATION: 70-year-old female, shortness of breath. Covid positive. History of breast cancer and melanoma. FINDINGS: There is patchy multifocal bilateral alveolar consolidation. There are subcentimeter calcified right lower lobe granulomas. There is no identified noncalcified pulmonary nodule. There is no identified lung mass. There is no pneumothorax. There is no pleural effusion. The central airways are patent. There is no identified pulmonary embolus. The main pulmonary artery is normal in caliber. The heart is borderline enlarged. There is no pericardial effusion. There is no identified abnormally enlarged noncalcified mediastinal, hilar, or axillary lymph node meeting CT size criteria for adenopathy. There are bilateral breast implants. There is diffuse fatty infiltration of the liver. There is a small hiatal hernia. There are degenerative changes of the spine. There is no identified acute bony abnormality. IMPRESSION: CT CHEST. 1. Patchy multifocal bilateral lung consolidation most consistent with provided history of Covid 19 infection and multifocal pneumonia/pneumonitis. 2. No identified pulmonary embolus. Dictated by: Dictated on workstation # [id number] Dict: 04/16/212121 Trans: 04/16/212131 [facility] [id number] Interpreted by: BISI MCQUEEN MD Electronically signed by: BISI MCQUEEN MD 04/16/212131 Assessment/Plan Admission Diagnosis Acute hypoxic respiratory failure due to COVID19 Admission Status: Inpatient Order (span 2 midnights) Reason for Inpatient Admission: see below Assessment and Plan Acute hypoxic respiratory failure due to COVID19 Symptoms onset 1 week ago Anticipate worsening before improvement, informed patient and daughter of this Start on Remdesivir Continue decadron Offered convalescent plasma- patient would like to think about it before agreeing to using Acute encephalopathy Improved today, unlikely to be a stroke CT head negative MRI planned if able to do it in COVID precautions HTN Continue home medications dvt ppx: Lovenox Diagnosis/Problems Diagnosis/Problems (1) Acute encephalopathy Status: Acute (2) Pneumonia due to COVID-19 virus Status: Acute (3) COVID-19 Status: Acute SONIDO SEGUNDO MD Apr 17, 2021 09:09
[2021-04-17] MEDS ORDERED: ONDANSETRON 4 MG/2 ML (SDV) Z0FRAN IV PRN (09:15)
[2021-04-17] MEDS ORDERED: ACETAMINOPHEN 325 MG TABLET PO PRN (09:15)
[2021-04-17] MEDS ORDERED: dexAMETHasone 6 MG TAB (DECADRON) PO SCH (09:15)
[2021-04-17] MEDS: dexAMETHasone 6 MG TAB (DECADRON) PO SCH (10:01)
[2021-04-17] MEDS: guaiFENesin/CODEINE (ROBITUSSIN AC) 10ML UDC PO SCH ×4 (10:02→21:19)
[2021-04-17] MEDS: ENOXAPARIN 40 MG/0.4 ML (LOVENOX) SYR SC SCH (10:02)
--- NOTE | 2021-04-17 10:59 | Physical Therapy Evaluation ---
PT Evaluation-General Medical Diagnosis Admission Date Apr 17, 2021 at 00:40 Medical Diagnosis: Covid pneumonia/acute encephalopathy Onset Date: Apr 14, 2021 Therapy Diagnosis Therapy Diagnosis: debility/weakness Precautions Precautions/Isolations: Airborne Isolation, Contact Isolation Referral Physician: Sanya Reason for Referral: Evaluation/Treatment Medical History Pertinent Medical History: Breast CA S/P Mastectomy, HTN Current History EMS secondary to AMS/Covid (+) Reviewed History: Yes Social History Home: Single Level Current Living Status: Other Family Entry Into Home: Level Entry Prior Prior Level of Function SCALE: Activities may be completed with or without assistive devices. 7-Vshbvxhhsp-iylxqut completes the activity by him/herself with no assistance from a helper. 5-Set-up or Clean-up Assistance-helper sets up or cleans up; patient completes activity. Loa assists only prior to or following the activity. 4-Supervision or Touching Assistance-helper provides verbal cues and/or touching/steadying and/or contact guard assistance as patient completes activity. Assistance may be provided throughout the activity or intermittently. 3-Partial/Moderate Assistance-helper does LESS THAN HALF the effort. Loa lifts, holds or supports trunk or limbs, but provides less than half the effort. 2-Substantial/Maximal Assistance-helper does MORE THAN HALF the effort. Loa lifts or holds trunk or limbs and provides more than half the effort. 5-Niyfknhif-zgpdzp does ALL the effort. Patient does none of the effort to complete the activity. Or, the assistance of 2 or more helpers is required for the patient to complete the activity. If activity was not attempted, code reason: 7-Patient Refused. 9-Not Applicable-not attempted and the patient did not perform the activity before the current illness, exacerbation or injury. 10-Not Attempted due to Environmental Limitations-(lack of equipment, weather restraints, etc.). 88-Not Attempted due to Medical Conditions or Safety Concerns. Bed Mobility: 6 Transfers (B,C,W/C): 6 Gait: 6 Stairs: 6 Indoor Mobility (Ambulation): Independent Stairs: Independent Prior Devices Use: None PT Evaluation-Current Subjective Patient agrees to PT. She reports she was out feeding chickens prior to this hospital admit. Objective Patient Orientation: Normal For Age Attachments: Oxygen ROM/Strength ROM Lower Extremities bilateral LE WFL Strength Lower Extremities 4/5 grossly bilateral LE Integumentary/Posture Bowel Incontinence: No Bladder Incontinence: No Posture WFL Neuromuscular (Tone, Coordination, Reflexes) grossly intact Sensory Vision: Functional Hearing: Functional Transfers Lying to Sitting/Side of Bed(Q: 6 Sit to Stand (QC): 6 Chair/Lzo-zv-Blsoq Xfer(QC): 6 Gait Does the Patient Walk?: Yes Mode of Locomotion: Walk Anticipated Mode of Locomotion: Walk Walk 10 feet (QC): 6 Gait Assistive Device: None Comments/Gait Description safe and functional with no deviation Balance Sitting Static: Normal Sitting Dynamic: Normal Standing Static: Normal Standing Dynamic: Normal Treatment education/demonstration of deep breathing exercises performed x 5 reps each (trunk rotation and standing deep breathing) Assessment/Needs 70 y.o. female, currently at [facility] with performs breathing activity without difficulty. No skilled PT indicated/physician notified. Rehab Potential: Fair PT Plan Treatment/Plan Treatment Plan: Discontinue PT, goals met Treatment Duration: Apr 17, 2021 Frequency: 1 time per week Estimated Hrs Per Day: .25 hour per day Patient and/or Family Agrees t: Yes Discharge Recommendations Therapy Discharge Recommendati: Home & Family Time/GCodes Time In: 1015 Time Out: 1031 Total Billed Treatment Time: 16 Total Billed Treatment 1 visit EVModC 16 min CALEB BENITEZ PT Apr 17, 2021 10:59
[2021-04-17] MEDS ORDERED: meTOprolol SUCCINATE 100 MG (TOPROL XL) TAB PO ONE (13:30)
--- NOTE | 2021-04-17 14:54 | Occupational Therapy Eval ---
OT Evaluation-General/PLF Medical Diagnosis Admission Date Apr 17, 2021 at 00:40 Medical Diagnosis: Covid pneumonia/acute encephalopathy Onset Date: Apr 14, 2021 Therapy Diagnosis Therapy Diagnosis: decreased activity tolerance Precautions Precautions/Isolations: Airborne Isolation, Contact Isolation Referral Physician: Sanya Referral Reason: Evaluation/Treatment Medical History Pertinent Medical History: Breast CA S/P Mastectomy, HTN Current History ED due to COVID+ & AMS Social History Home: Single Level Current Living Status: Other Family Entry Into Home: Level Entry ADL-Prior Level of Function SCALE: Activities may be completed with or without assistive devices. 8-Jradecpfga-eamunfk completes the activity by him/herself with no assistance from a helper. 5-Set-up or Clean-up Assistance-helper sets up or cleans up; patient completes activity. Sheldon assists only prior to or following the activity. 4-Supervision or Touching Assistance-helper provides verbal cues and/or touching/steadying and/or contact guard assistance as patient completes activity. Assistance may be provided throughout the activity or intermittently. 3-Partial/Moderate Assistance-helper does LESS THAN HALF the effort. Sheldon lifts, holds or supports trunk or limbs, but provides less than half the effort. 2-Substantial/Maximal Assistance-helper does MORE THAN HALF the effort. Sheldon lifts or holds trunk or limbs and provides more than half the effort. 0-Byjpcfkcf-vbryfy does ALL the effort. Patient does none of the effort to complete the activity. Or, the assistance of 2 or more helpers is required for the patient to complete the activity. If activity was not attempted, code reason: 7-Patient Refused. 9-Not Applicable-not attempted and the patient did not perform the activity before the current illness, exacerbation or injury. 10-Not Attempted due to Environmental Limitations-(lack of equipment, weather restraints, etc.). 88-Not Attempted due to Medical Conditions or Safety Concerns. ADL PLOF Comments Pt indicates she was independent with all I/ADLs and functional mobility at PLOF, no AD/AE Self Care: Independent Functional Cognition: Independent OT Current Status Subjective Pt seated in recliner, agreeable to OT evaluation Mental Status/Objective Patient Orientation: Person, Place, Time, Situation Attachments: Oxygen Current Upper Extremity ROM WFL Upper Extremity Coordination WFL Upper Extremity Sensation WFL Upper Extremity Strength grossly 4/5 BUES ADL-Treatment Eating (QC): 6 Oral Hygiene (QC): 6 (Per clincial judgement) Toileting Hygiene (QC): 6 (Per pt report) Other Treatments Pt seated upright in recliner. OT educated pt on purpose and benefit of OT, she verbalized understanding. Pt provided information about PLOF and home set up, and participated in UE screen. Pt declines ADLs at this time, as she has just to ileted and does not want to shower at this time. Pt indicates she had no difficulties with toileting, able to perform hygiene independently. She indicated IND with eating. Per PT report, pt independent with functional mobility in room, no AD. OT educated pt on benefits of UE exercise, pt able to complete x5 reps each of the following: shoulder flexion, elbow flexion, elbow extension and finger flexion/extension. Post tx, pt seated in recliner, call light in reach and all needs met. Education OT Patient Education: Correct positioning, Modified ADL techniques, Progress toward Goal/Update tx plan, Purpose of tx/functional activities Teaching Recipient: Patient Teaching Methods: Discussion Response to Teaching: Verbalize Understanding OT Care Home Goals Specimen Collector Goals 1=Demonstrate adherence to instructed precautions during ADL tasks. 2=Patient will verbalize/demonstrate understanding of assistive devices/modifications for ADL. 3=Patient will improve strength/tolerance for activity to enable patient to per form ADL's. OT Education/Plan Problem List/Assessment Assessment: No Skilled OT Needs ID'd No skilled OT services indicated at this time, as pt is currently independent with ADLs and functional mobility, and is at her PLOF Discharge Recommendations Plan/Recommendations: Discharge/Goals Met Treatment Plan/Plan of Care Patient would benefit from OT for education, treatment and training to promote independence in ADL's, mobility, safety and/or upper extremity function for ADL's. Plan of Care: ADL Retraining, Functional Mobility, UE Funct Exercise/Act Treatment Duration: Apr 17, 2021 Frequency: 1 time per week (eval only) Rehab Potential: Fair Time/GCodes Start Time: 14:25 Stop Time: 14:42 Total Time Billed (hr/min): 17 Billed Treatment Time 1, GIACOMO ACOSTA OT Apr 17, 2021 14:54
[2021-04-17] MEDS ORDERED: MULT-1136 PO (15:01)
[2021-04-17] MEDS ORDERED: IBUP-2473 PO (15:01)
[2021-04-17] MEDS ORDERED: MTP100TCR PO (15:01)
[2021-04-17] MEDS ORDERED: ACET-2267 PO (15:01)
[2021-04-17] MEDS ORDERED: VIT1CAPS44 PO (15:01)
[2021-04-17] MEDS ORDERED: GADOBUTROL 10 MMOL/10 ML (GADAVIST) VIAL IV ONE (15:15)
--- NOTE | 2021-04-17 16:13 | Diagnostic Imaging Report ---
Clinical indication: Patient is COVID positive. Possible acute encephalopathy. Exams: MRI of the brain performed without and with 10 cc of Gadavist IV contrast. Sequences include axial DWI, ADC map, axial gradient echo, axial FLAIR, axial T1, axial T2, axial T1 post IV contrast whole brain, coronal T1 fat-sat post IV contrast whole brain, and sagittal T1 post IV contrast whole brain. Comparison: Compared CT without contrast dated 04/16/2021. Findings: There is a 3 mm focal area of elevated DWI signal and iso to hypointense ADC map signal located in the posterior left putamen/external capsule region. There is minimal focal increased T2 signal in the region. There are no other areas of acute cerebral infarct seen. The brain parenchymal volume appears appropriate for patient's age. There are multiple focal, patchy, confluent areas of high T2 signal white matter changes seen throughout both cerebral hemispheres, periventricular regions, and left side of the felice. The left cerebral hemisphere slightly more involved than the left side. These findings may represent chronic small vessel ischemic disease leukoaraiosis. There is no brain herniation or midline shift. There is no hydrocephalus. The [place] vascular structures show no gross abnormality as visualized. The pituitary gland, sella, and suprasellar regions are unremarkable as visualized. The extracranial soft tissue, skull, and orbits show no significant abnormality. Paranasal sinuses and mastoid air cells are clear. IMPRESSION: 1: There is a 3 mm focal area of acute/subacute infarct involving the posterior left putamen/external capsule region. There is minimal focal high T2 signal seen in the region. There is no associated IV contrast enhancement. 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 Dictated by: Dictated on workstation # [id number]
[2021-04-17] MEDS: RT-ALBUTEROL HFA 8.5 GM INHALER IH SCH (21:02)
[2021-04-18] VITALS (9 sets, daily range): BP systolic 138–196; BP diastolic 68–126
[2021-04-18] MEDS: guaiFENesin/CODEINE (ROBITUSSIN AC) 10ML UDC PO SCH ×6 (01:24→20:06)
[2021-04-18] MEDS: CATHETER FLUSH 10 ML SYR IV SCH ×3 (06:52→22:02)
[2021-04-18] MEDS: dexAMETHasone 6 MG TAB (DECADRON) PO SCH (06:53)
[2021-04-18] MEDS: RT-ALBUTEROL HFA 8.5 GM INHALER IH SCH ×2 (07:52→18:07)
[2021-04-18] MEDS: ENOXAPARIN 40 MG/0.4 ML (LOVENOX) SYR SC SCH (08:41)
--- NOTE | 2021-04-18 08:45 | Progress Note - Hospitalist ---
Subjective HPI/CC On Admission Date Seen by Provider: Apr 18, 2021 Time Seen by Provider: 08:41 Pt is a 70yoCF with a PMH of HTn and breast cancer s/p masectomy who presented to the ER due to confusion. She doesn't recall much of the ER visit but was able to tell me that she was diagnosed with COVID a couple of days ago and started to feel poorly a few days ago. She has shortness of breath, confusion, loss of taste but not nausea or diarrhea. This morning her only complaint is that her bed is flat and she would like to sit up but the controls are locked. I did speak with her daughter, Yohana, as well. Subjective/Events-last exam Pt repors feeling ok. Still on 3.5lpm. No new complaints. Requesting DC. Focused Exam Lactate Level 04/16/21 19:27: Lactic Acid Level 1.08 Objective Exam Vital Signs Vital Signs Date Time Temp Pulse Resp B/P (MAP) Pulse Ox O2 Delivery O2 Flow Rate FiO2 04/18/21 11:07 37.0 63 18 152/72 (98) 93 Nasal Cannula 4.00 Capillary Refill : Less Than 3 Seconds General Appearance: No Apparent Distress, Chronically ill Respiratory: No Accessory Muscle Use, Decreased Breath Sounds Cardiovascular: Regular Rate, Rhythm, No Murmur Gastrointestinal: Normal Bowel Sounds, Soft Neurologic/Psychiatric: Alert, Oriented x3 Results/Procedures Lab Patient resulted labs reviewed. Imaging: Reviewed Imaging Report Assessment/Plan Assessment and Plan Assess & Plan/Chief Complaint Acute hypoxic respiratory failure due to COVID19 Currently on 4lpm, up from yesterday- discussed that given incrasing oxygen requirement she is not yet medically ready to DC Continue Remdesivir Continue decadron Offered convalescent plasma- patient now agrees, will order, discussed national backorder and that it may take a while to get here Acute encephalopathy Subacute infarct MRI showed acute to subacute infarct Will add ASA and statin Seen by PT yesterday- no deficits HTN Continue home medications dvt ppx: Lovenox Diagnosis/Problems Diagnosis/Problems (1) Acute encephalopathy Status: Acute (2) Pneumonia due to COVID-19 virus Status: Acute (3) COVID-19 Status: Acute (4) CVA (cerebral vascular accident) SONIDO OLGUIN MD Apr 18, 2021 08:45
[2021-04-18] MEDS ORDERED: meTOprolol SUCCINATE 100 MG (TOPROL XL) TAB PO SCH (09:00)
[2021-04-18] MEDS ORDERED: ASPIRIN E.C. 81 MG (ECOTRIN) TAB PO ONE (09:15)
[2021-04-18] MEDS ORDERED: NS IV 500 ML 500 ML IV ONE (11:30)
[2021-04-18] MEDS ORDERED: ASPIRIN 81 MG CHEW (CHILDREN'S ASA) ONE (11:39)
--- NOTE | 2021-04-18 12:49 | Pulmonary Consultation ---
History of Present Illness History of Present Illness Date Seen by Provider: Apr 18, 2021 Time Seen by Provider: 14:57 Date of Admission 70 y old lady admitted with confusion; she was diagnosed with COVID ~1 week ago (unvaccinated). Pt developed loss of taste, sob and was admitted to step down unit with o2/ r emdesivir/ dexa/ lovenox Allergies and Home Medications Allergies Coded Allergies: No Known Drug Allergies (Unverified , 06/04/20) Home Medications Acetaminophen 500 Mg Tablet, 500-1,000 MG PO Q8H PRN for PAIN-MILD (1-4), (Reported) Ibuprofen 200 Mg Tablet, 400-600 MG PO Q8H PRN for PAIN-MILD (1-4), (Reported) Metoprolol Succinate 100 Mg Tab.er.24h, 100 MG PO BID, (Reported) Multivitamin 1 Each Tablet, 1 EACH PO HS, (Reported) Vit C/E/Zn/Coppr/Lutein/Zeaxan 1 Each Capsule, 1 EACH PO HS, (Reported) Past Medical/Social/Family Hx Patient Social History Employed/Student: unemployed Tobacco Use?: No Smoking Status: Never a Smoker Use of E-Cig and/or Vaping dev: No Substance use?: No Alcohol Use?: No Pt stated abuse/neglect: No Immunizations Up To Date Influenza Vaccine Up-to-Date: No; Not Current Tetanus Booster (TDap): Unknown TB Skin Test: None Current Status status: No status: No Advance Directives: No Communicates: Verbally Primary Language: Tanzanian Preferred Spoken Language: Tanzanian Is interpretation needed?: No Sensory deficits: Vision impairment Implanted or Applied Medical D: None Past Medical History HTN, Breast mastectomy melanoma hysterectomy Review of Systems Constitutional: dizziness Respiratory: short of breath Sepsis Event Evaluation Height, Weight, BMI Height: '" Weight: lbs. oz. kg; 37.42 BMI Method: Exam Exam Patient acknowledged, consented, and participated in this virtual visit which wa s conducted using real time audio/video Vital Signs Date Time Temp Pulse Resp B/P (MAP) Pulse Ox O2 Delivery O2 Flow Rate FiO2 04/18/21 11:07 37.0 63 18 152/72 (98) 93 Nasal Cannula 4.00 04/18/21 07:53 91 Nasal Cannula 4.00 04/18/21 07:28 35.7 57 20 174/126 (142) 92 Nasal Cannula 4.00 04/18/21 07:00 60 04/18/21 04:30 Nasal Cannula 3.50 04/18/21 04:00 36.1 50 20 196/87 (123) 95 Nasal Cannula 3.50 04/18/21 01:25 Nasal Cannula 3.50 04/18/21 01:00 56 04/18/21 00:00 36.8 61 15 138/72 (94) 99 Nasal Cannula 3.50 04/17/21 21:20 Nasal Cannula 3.50 04/17/21 21:03 APAP 04/17/21 21:02 98 Nasal Cannula 4.00 04/17/21 20:08 36.0 70 18 170/112 (131) 98 Nasal Cannula 3.50 04/17/21 19:00 60 04/17/21 17:14 Room Air 04/17/21 17:10 76 96 04/17/21 16:47 35.3 60 14 186/90 (122) 97 Nasal Cannula 3.50 04/17/21 13:30 Room Air 04/17/21 13:07 65 15 164/100 (121) 93 Nasal Cannula 3.50 04/17/21 12:52 68 I & O 04/18/21 07:00 Intake Total 1270 ml Output Total 950 ml Balance 320 ml Height & Weight Height: '" Weight: lbs. oz. kg; 37.42 BMI Method: General Appearance: No Apparent Distress, Chronically ill HEENT: PERRL/EOMI, Moist Mucous Membranes; No Scleral Icterus (L), No Scleral Icterus (R) Neck: Normal Inspection, Supple Respiratory: No Accessory Muscle Use, Decreased Breath Sounds Cardiovascular: Regular Rate, Rhythm, No Murmur Capillary Refill: Less Than 3 Seconds Extremity: Normal Capillary Refill, No Calf Tenderness, No Pedal Edema Neurologic/Psychiatric: Alert, Oriented x3 Skin: Normal Color, Warm/Dry Results Lab Laboratory Tests 04/16/21 19:27 04/17/21 04:05 Assessment/Plan Assessment/Plan Acute hypoxemic resp failure in the context of COVID PNA o2 to keep pulse ox>90% watch for deterioration abg/ trend d dimer lovenx, dexa, remdesvir AG metabolic acidosis with good BP -check lactic acid/ bhb/ abg/ procal dw PCP SHELTON Salamanca MD Apr 18, 2021 12:48
[2021-04-18] MEDS ORDERED: NS IV 500 ML 500 ML ONE (14:45)
[2021-04-18 15:16] LABS: ABG BASE EXCESS 1.5 MMOL/L (-2.5-2.5); ABG OXYGEN SATURATION 98 % (94-100); ABG PCO2 42 MMHG (35-45); ABG PO2 88 MMHG (79-93); ABG TCO2 27.2 MMOL/L (21.0-31.0); PATIENT TEMP 36.7; VENTILATOR NO
--- NOTE | 2021-04-18 15:27 | CONSULTATION REPORT ---
DATE OF SERVICE: 04/18/2021 ADMITTING PHYSICIAN: Dr. Malathi Segundo. ATTENDING PRIMARY CARE PHYSICIAN: Dr. David Levi. HISTORY OF PRESENT ILLNESS: The patient is a 70-year-old female, who presented to the Emergency Department due to confusion. She does not recall much and does appear to be confused; however, does answer some questions appropriately. She was diagnosed with COVID-19 several days ago and has felt poorly for the past several days. She had stated shortness of breath and in the morning of her complaints, she was brought in due to the confusion and may have also had a fall that was unwitnessed. A CT scan of the head, neck and chest were performed, which did not show any abnormalities. MRI of the head was then performed, which showed chronic ischemic changes; however, nothing acute. Upon examination, she does not have any scalp or neck pain as well as no hematomas. Her [place] coma scale is 14 due to confusion. PAST MEDICAL HISTORY: History of breast cancer, history of melanoma, hypertension, and cardiac arrhythmia. PAST SURGICAL HISTORY: Right breast lumpectomy, hysterectomy, and excision melanoma. ALLERGIES: No known drug allergies. MEDICATIONS: Metoprolol 100 mg daily. SOCIAL HISTORY: Negative smoke and negative alcohol. FAMILY HISTORY: Noncontributory. REVIEW OF SYSTEMS: A well-nourished female currently in no acute distress. She is not experiencing any shortness of breath or difficulty in breathing. No chest pain, palpitations or diaphoresis. No nausea, vomiting, no diarrhea, constipation, no red blood per rectum, and no dark tarry stools. No fever, chills, no recent inadvertent weight loss. All other review of systems negative. PHYSICAL EXAMINATION: VITAL SIGNS: Temperature 37.0, blood pressure to 152/72, pulse 53, respirations 18, and pulse ox 93% on 4 liters nasal cannula. CHEST: Few scattered rales bilaterally. HEART: Regular and no murmurs. EXTREMITIES: No lower extremity edema and negative Homans sign. HEENT: No scleral icterus and no cervical lymphadenopathy. ABDOMEN: Soft, nontender, and nondistended. SKIN: Warm and dry. NEUROLOGIC: Moves all four extremities purposefully upon command. No focal deficits. No neck pain. No step-offs or deformities. Facial bones are intact. No cranial hematomas. LABORATORY DATA: WBC 2.7, hemoglobin 15.2, hematocrit 46, and platelets 172. BUN 9 and creatinine 0.72. ASSESSMENT AND PLAN: A 70-year-old female with confusion and possible unwitnessed fall. At this time, her CT scan of the head, neck and chest appeared to be normal. An MRI did show some mild chronic acute changes. There does not appear to be any intracerebral hemorrhage or any hematomas or any facial or spinal fractures. From our standpoint, she may proceed with anticoagulation if necessary and may proceed with all normal activities as well as diet. Job ID: [id number] DocumentID: [id number] Dictated Date: 04/18/2021 15:13:40 Licensed [employer] App[employer] Date: 04/18/2021 15:27:20 Dictated By: PORSHA VALE MD
[2021-04-18] MEDS ORDERED: meTOprolol TARTRATE 50 MG (LOPRESSOR) TAB ONE (21:29)
[2021-04-18] MEDS: meTOprolol TARTRATE 50 MG (LOPRESSOR) TAB PO SCH (21:33)
[2021-04-19] VITALS (7 sets, daily range): BP systolic 128–173; BP diastolic 66–102
[2021-04-19] MEDS: dexAMETHasone 6 MG TAB (DECADRON) PO SCH (05:11)
[2021-04-19] MEDS: guaiFENesin/CODEINE (ROBITUSSIN AC) 10ML UDC PO SCH ×6 (05:11→20:03)
[2021-04-19] MEDS: CATHETER FLUSH 10 ML SYR IV SCH ×3 (05:18→20:04)
[2021-04-19] MEDS: RT-ALBUTEROL HFA 8.5 GM INHALER IH SCH ×2 (07:07→22:27)
[2021-04-19] MEDS: meTOprolol TARTRATE 50 MG (LOPRESSOR) TAB PO SCH ×2 (08:55→20:04)
[2021-04-19] MEDS: ASPIRIN E.C. 81 MG (ECOTRIN) TAB PO SCH (08:55)
[2021-04-19] MEDS: ENOXAPARIN 40 MG/0.4 ML (LOVENOX) SYR SC SCH (08:56)
--- NOTE | 2021-04-19 11:34 | Progress Note - Hospitalist ---
Subjective HPI/CC On Admission Date Seen by Provider: Apr 19, 2021 Time Seen by Provider: 11:28 Pt is a 70yoCF with a PMH of HTn and breast cancer s/p masectomy who presented to the ER due to confusion. She doesn't recall much of the ER visit but was able to tell me that she was diagnosed with COVID a couple of days ago and started to feel poorly a few days ago. She has shortness of breath, confusion, loss of taste but not nausea or diarrhea. This morning her only complaint is that her bed is flat and she would like to sit up but the controls are locked. I did speak with her daughter, Yohana, as well. Subjective/Events-last exam Pt reports feeling much better today. No complaints. Is still requesting DC. Got shower this morning and feels much better. Discussed course of [id number] and that if she is still doing well we will DC home tomorrow. I called and udpated daughter as well. Daughter had concerns about some nursing issues last night. I relayed concerns to field human resources manager Rina who will call the daughter. Focused Exam Lactate Level 04/16/21 19:27: Lactic Acid Level 1.08 04/18/21 14:50: Lactic Acid Level 1.01 Objective Exam Vital Signs Vital Signs Date Time Temp Pulse Resp B/P (MAP) Pulse Ox O2 Delivery O2 Flow Rate FiO2 04/19/21 14:48 36.4 41 18 172/68 (102) 97 Nasal Cannula 2.00 Capillary Refill : Less Than 3 Seconds General Appearance: No Apparent Distress, WD/WN Respiratory: Lungs Clear, No Accessory Muscle Use, No Respiratory Distress Cardiovascular: Regular Rate, Rhythm, No Murmur Neurologic/Psychiatric: Alert, Oriented x3 Results/Procedures Lab Patient resulted labs reviewed. Imaging: Reviewed Imaging Report Assessment/Plan Assessment and Plan Assess & Plan/Chief Complaint Acute hypoxic respiratory failure due to COVID19 Currently on 2lpm, doing better, hopeful for DC tomorrow I called and updated her daughter as well Continue Remdesivir Continue decadron Received convalescent plasma last night Home oxygen study Acute encephalopathy Subacute infarct MRI showed acute to subacute infarct, no intervention needed Continue ASA and statin Seen by PT yesterday- no deficits HTN Continue home medications dvt ppx: Lovenox Diagnosis/Problems Diagnosis/Problems (1) Acute encephalopathy Status: Acute (2) Pneumonia due to COVID-19 virus Status: Acute (3) COVID-19 Status: Acute (4) CVA (cerebral vascular accident) SONIDO OLGUIN MD Apr 19, 2021 11:34
[2021-04-19] MEDS: REMDESIVIR INJ 100 MG in NS (IVPB) 230 ML IV SCH (11:59)
[2021-04-19] MEDS ORDERED: amLODIPine 5 MG (NORVASC) TAB PO ONE (12:00)
[2021-04-20] MEDS: guaiFENesin/CODEINE (ROBITUSSIN AC) 10ML UDC PO SCH ×4 (01:17→13:15)
[2021-04-20 04:27] LABS: HEMATOCRIT 41 % (35-52); HEMOGLOBIN 13.1 g/dL (11.5-16.0); MEAN CORPUSCULAR HEMOGLOBIN 27 pg (25-34); MEAN CORPUSCULAR HGB CONC 32 g/dL (32-36); MEAN CORPUSCULAR VOLUME 85 fL (80-99); MEAN PLATELET VOLUME 10.8 fL (9.0-12.2); PLATELET COUNT 231 10^3/uL (130-400); WHITE BLOOD COUNT 4.8 10^3/uL (4.3-11.0)
[2021-04-20 04:33] VITALS: BP 163/78
[2021-04-20 04:39] LABS: POTASSIUM 3.9 MMOL/L (3.6-5.0)
[2021-04-20 04:40] LABS: CALCIUM 8.8 MG/DL (8.5-10.1)
[2021-04-20 04:44] LABS: CREATININE SERUM 0.63 MG/DL (0.60-1.30)
[2021-04-20] MEDS: CATHETER FLUSH 10 ML SYR IV SCH (05:44)
[2021-04-20] MEDS: dexAMETHasone 6 MG TAB (DECADRON) PO SCH (05:44)
[2021-04-20 07:30] VITALS: BP 187/83
[2021-04-20] MEDS: RT-ALBUTEROL HFA 8.5 GM INHALER IH SCH (08:00)
[2021-04-20] MEDS ORDERED: amLODIPine 5 MG (NORVASC) TAB PO SCH (09:00)
[2021-04-20] MEDS: ASPIRIN E.C. 81 MG (ECOTRIN) TAB PO SCH (09:16)
[2021-04-20] MEDS: ENOXAPARIN 40 MG/0.4 ML (LOVENOX) SYR SC SCH (09:16)
[2021-04-20] MEDS: meTOprolol TARTRATE 50 MG (LOPRESSOR) TAB PO SCH (09:16)
--- NOTE | 2021-04-20 10:20 | Discharge Summary ---
Diagnosis/Chief Complaint Date of Admission Apr 17, 2021 at 00:40 Date of Discharge Discharge Date: Apr 20, 2021 Admission Diagnosis Acute hypoxic respiratory failure due to COVID19 Primary Care Lexus Levi MD Discharge Diagnosis (1) Acute encephalopathy Status: Acute (2) Pneumonia due to COVID-19 virus Status: Acute (3) COVID-19 Status: Acute (4) CVA (cerebral vascular accident) Discharge Summary Discharge Physical Exam Allergies: Coded Allergies: No Known Drug Allergies (Unverified , 06/04/20) Vitals & I&Os Vital Signs Date Time Temp Pulse Resp B/P (MAP) Pulse Ox O2 Delivery O2 Flow Rate FiO2 04/20/21 08:00 Nasal Cannula 3.00 04/20/21 08:00 91 04/20/21 07:30 37.0 53 18 187/83 (117) General Appearance: No Apparent Distress, WD/WN Respiratory: Lungs Clear, No Accessory Muscle Use Cardiovascular: Regular Rate, Rhythm, No Murmur Neurologic/Psychiatric: Alert, Oriented x3 Hospital Course patient was admitted with acute hypoxic respiratory failure due to COVID-19. She was treated with Decadron, convalescent plasma, and Remdesivir. She did well and was able to be titrated down on oxygen to 2lpm continuously. This was She was discharged home in stable and improved condition to follow-up with his primary care provider. MRI was down and revealed subacute infarct. I discussed this with her and her daughter and started her on secondary prevention. Labs (last 24 hrs) Laboratory Tests 04/20/21 04:14: White Blood Count 4.8, Red Blood Count 4.82, Hemoglobin 13.1, Hematocrit 41, Mean Corpuscular Volume 85, Mean Corpuscular Hemoglobin 27, Mean Corpuscular Hemoglobin Concent 32, Red Cell Distribution Width 14.3, Platelet Count 231, Mean Platelet Volume 10.8, Sodium Level 146H, Potassium Level 3.9, Chloride Level 109H, Carbon Dioxide Level 24, Anion Gap 13, Blood Urea Nitrogen 13, Creatinine 0.63, Estimat Glomerular Filtration Rate 94, BUN/Creatinine Ratio 21, Glucose Level 99, Calcium Level 8.8 Microbiology 04/16/21 Blood Culture - Preliminary, Resulted No growth Patient resulted labs reviewed. Pending Labs Laboratory Tests 04/20/21 04:14: White Blood Count 4.8, Red Blood Count 4.82, Hemoglobin 13.1, Hematocrit 41, Mean Corpuscular Volume 85, Mean Corpuscular Hemoglobin 27, Mean Corpuscular Hemoglobin Concent 32, Red Cell Distribution Width 14.3, Platelet Count 231, Mean Platelet Volume 10.8, Sodium Level 146, Potassium Level 3.9, Chloride Level 109, Carbon Dioxide Level 24, Anion Gap 13, Blood Urea Nitrogen 13, Creatinine 0.63, Estimat Glomerular Filtration Rate 94, BUN/Creatinine Ratio 21, Glucose Level 99, Calcium Level 8.8 Imaging: Reviewed Imaging Report Discussion & Recommendations Discharge Planning: >30 minutes discharge planning Discharge Home Medications: Active Scripts Active Aspirin EC (Aspirin) 81 Mg Tablet.dr 81 Mg PO DAILY Lipitor (Atorvastatin Calcium) 40 Mg Tablet 40 Mg PO HS Reported Multivitamin 1 Each Tablet 1 Each PO HS Preservision Areds 2 Softgel (Vit C/E/Zn/Coppr/Lutein/Zeaxan) 1 Each Capsule 1 Each PO HS Ibuprofen 200 Mg Tablet 400-600 Mg PO Q8H PRN Tylenol Extra Strength (Acetaminophen) 500 Mg Tablet 500-1,000 Mg PO Q8H PRN Metoprolol Succinate 100 Mg Tab.er.24h 100 Mg PO BID Instructions to patient/family Please see electronic discharge instructions given to patient. Copy Copies To 1: LEXUS LEVI MD, KATELYN M MD Apr 20, 2021 10:20
[2021-04-20] MEDS ORDERED: ATOR40TA PO (10:21)
[2021-04-20] MEDS ORDERED: ASPI-1238 PO (10:21)
--- NOTE | 2021-04-20 10:24 | Discharge Inst-Simple/Standard ---
Discharge Inst-Standard Discharge Medications New, Converted or Re-Newed RX: Transmitted to Pharmacy Patient Instructions/Follow Up Plan of Care/Instructions/FU: Please continue to take your medications as written. Please follow up with your primary care doctor to follow up this hospital stay. Activity as Tolerated: Yes Discharge Diet: Low Fat/Low Cholesterol Return to The Hospital For: Chest pain, shortness of breath, fever, weakness, confusion, slurred speech, if you feel you are getting worse. SONIDO OLGUIN MD Apr 20, 2021 10:24
[2021-04-20] MEDS: REMDESIVIR INJ 100 MG in NS (IVPB) 230 ML IV SCH (12:20)
== END 2021-04-20 14:01 | disposition home or self-care (01) | DRG 177 ==
LOC: EDUNIT# 19:19 → ER FS 19:20 → CSD 04-17 00:40 → 4TH 04-19 03:29
PROVIDERS: ADMIT Family Medicine; ATTEND Family Medicine
PROC: XW033E5 Introduction of Remdesivir Anti-infective into Peripheral Vein, Percutaneous Approach, New Technology Group 5 (ICD-10-PCS; principal; 2021-04-17)
PROC: XW13325 Transfusion of Convalescent Plasma (Nonautologous) into Peripheral Vein, Percutaneous Approach, New Technology Group 5 (ICD-10-PCS; 2021-04-18)
DX: U07.1 COVID-19 (principal); J12.82 Pneumonia due to coronavirus disease 2019; J96.01 Acute respiratory failure with hypoxia; I63.9 Cerebral infarction, unspecified; E87.2 Acidosis; G93.49 Other encephalopathy; I10 Essential (primary) hypertension; Z85.3 Personal history of malignant neoplasm of breast; Z90.10 Acquired absence of unspecified breast and nipple
CPT/HCPCS: 36415; 70450; 70553; 71045; 71275; 80048; 80053; 81000; 82010; 82805; 83605; 83880; 84145; 84484; 85025; 85027; 85379; 85610; 85730; 86900; 86901; 87040; 93005; 94640; 94761; 96374

== ENCOUNTER 2021-06-03 12:38 | Emergency (ER) | payer OTHER, MEDICARE ==
[~2021-06-03] VITALS: Ht 165 cm; Wt 111.0 kg
[~2021-06-03 12:38] MED LIST changes: +ACET-2267 PO; +ASPI-1238 PO; +ATOR40TA PO; +IBUP-2473 PO; +MTP100TCR PO; +MULT-1136 PO; +VIT1CAPS44 PO
--- OUTSIDE RECORDS SUMMARY | 2021-06-03 12:44 | XMS REPORT | Clinical Summary ---
Author Author [facility] Organization [facility] Address Unknown Phone Unavailable Care Team Providers Care Satellite Communications Engineer Name Role Phone Jan Castillo MD Unavailable Ling Jauregui MD Unavailable Unavailable Saba Bowers APRN Unavailable Unavailable Radha Miranda PA-C Unavailable Garrett Madrigal MD Unavailable Livia Lopez CRNA Unavailable Alondra Delgado PA-C Unavailable Vi Joyner LPN Unavailable Unavailable Lynn Chandra-C Unavailable David Levi MD PCP Source Comments Some departments are not documenting in the electronic medical record. If you d o not see the information that you expected, contact Release of Information in [facility] Information Management department at [phone] for further assistan ce in locating additional records.[facility] Allergies No Known Active Allergies Medications End Date Status Medication Sig Dispensed Refills Start Date Active Cholecalciferol (Vitamin take by mouth 90 Cap 3 D3) 2,000 unit daily 4 capIndications: Breast cancer (HCC) Active metoprolol XL (TOPROL XL) Take 50 mg by 0 50 mg tablet mouth at bedtime daily. Active lisinopril (PRINIVIL, Take 40 mg by 0 ZESTRIL) 40 mg tablet mouth at bedtime daily. Active MULTIVITAMIN PO Take 1 tablet 0 by mouth daily. Active Vitamin A-Vitamin C-Vit Take 1 0 E-Min (PRESERVISION capsule by AREDS) cap mouth daily. Active ibuprofen (MOTRIN) 800 mg Take 1 tablet 30 tablet 0 tablet by mouth 8 every 6 hours as needed for Pain. Take with food. Active cyclobenzaprine 0 (FLEXERIL) 10 mg tablet 9 Active oxybutynin XL (DITROPAN Take one 90 tablet 3 XL) 5 mg tablet tablet by 1 mouth daily. Active nitrofurantoin Take one 10 capsule 0 monohyd/m-cryst capsule by 1 (MACROBID) 100 mg capsule mouth every 12 hours. Take with food. Active Problems Problem Noted Date Urge incontinence of urine 12/03/2020 Full incontinence of feces 12/03/2020 Mass of left upper extremity 01/04/2018 Overview: Formatting of this note might be differ ent from the original. Added automatically from request for fidelina fong [id number] Melanoma 12/27/2015 Cancer Staging: Pathologic: Stage IB (T 2a, N0, cM0) - Signed by Alondra Delgado PA-C on 02/15/2016 Overview: Formatting of this note is different fr om the original. In 2015, patient was referred to Dr Cliff Buck for excision of lesion on her left arm which was very large and d ark. Patient didn't know how long it was there as the location was hard f or her to see. She noticed it a few months before but didn't think much abo ut until it started getting larger and changing. Now is newly diagnosed w ith malignant melanoma after biopsy taken, Breslow thickness 2.1 mm, non-ul cerated, margins not involved. She then underwent a WLE with SLN Biopsy on 02/01/16 which found no residual melanoma and was negative for mets in a ll 8 LNs tested. She has since followed with Dr. Madrigal for routine re staging with chest x-rays every 6 months. The last of which, taken , found no abnormalities. She has a hx of breast cancer with prio r lumpectomy performed in [address] Buck. She also reports having a histo ry of double mastectomy with clear SLNs. TIMELINE: 12/18/15 Path Skin, left arm --Invasive Nodular melanoma. Tumor thickness 2.1 mm. Anatomic level IV. Ulceration not iden tified. Margins uninvolved. Closest margin 0.7 mm. --Mitotic rate greater than 1/mm2: 6/mm 2. Microsatellitosis not identified. Lymphovascular invasion and perineural invasion not identified. --Tumor infiltrating lymphocytes presen t, non brisk. Tumor regression not identified WLE with SLN Bx 02/01/16: A. left axillary sentinel lymph node #1 : -- Negative for melanoma (0/2). B. left axillary sentinel lymph node #2 : -- Negative for melanoma (0/1). C. left axillary sentinel lymph node #3 : -- Negative for melanoma (0/5). D. left arm: -- Postoperative scar. -- Negative for residual melanoma. CHEST 2 VIEWS 09/11/20: Stable chest radiograph demonstrating n o acute cardiopulmonary abnormalities. CONSENTED TO SURVIVORSHIP REGISTRY: 12/26 L ast Assessment & Plan: Formatting of this note might be differ ent from the original. New survivorship patient. Will begin ro utine restaging in 1-year intervals Amastia 11/07/2013 Malignant neoplasm of upper-outer quadrant of left fe male breast 07/31/2013 Cancer Staging: Pathologic: Stage IA (T 1, N0, cM0) - Signed by Radha Yoo PA-C on 03/21/2016 Overview: Formatting of this note might be differ ent from the original. s/p left breast lumpectomy (Dr. 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 Shania monteiro tx recommended Encounters Care Team Description Date Type Specialty Enoc Nichols MD Philp, Marlyn, PhD 04/03/2021 Clinical Oncology Support from Last 3 Months Surgical History Surgery Date Site/Laterality Comments HX HYSTERECTOMY 1977 partial HX BREAST LUMPECTOMY June 23, Breast profile re vealed 4% estrogen receptor, 3% 2013 progesterone receptor and H ER-2 was 3+. LYMPH NODE BIOPSY June 23, 2013 HX BREAST BIOPSY 2009 Left chest wall BREAST RECONSTRUCTION 08/05/2013 HX MASTECTOMY , Bilateral 2012 BREAST AUGMENTATION 11/2013 Bilateral mastectomy SOFT TISSUE BIOPSY 12/2015 Left left upper arm SKIN CANCER EXCISION 01/20/2018 Arm Upper/Left EXCISION OF LEFT ARM MASS performed by Garrett Madrigal MD at [facility] OR/Periop SKIN CANCER EXCISION 02/01/2016 Arm Upper/Left WIDE LOCA L EXCISION OF LEFT ARM, INTRAOPERATIVE LYMPHATIC MAPPING performed by [facility] MD at [facility] LYMPH NODE BIOPSY 02/01/2016 Axilla/Left SENTINEL AXI LLARY LYMPH NODE BIOPSY performed by Garrett Madrigal MD at [facility] OR/Sia op INGUINAL HERNIA REPAIR 05/03/2019 Abdomen/Right LAPAROS COPIC RIGHT INGUINAL HERNIA REPAIR WITH MESH performed by Efrain Reyes MD at [facility] OR/PERIOP Medical devices from this surgery are i n the Implants section. Medical History Medical History Date Comments 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 Arthritis R hip, fingers Palpitations 2015 Obese Breast cancer (HCC) 06/24/2013 Left breast microi nvasive carcinoma in a background of DCIS, hormone receptor is poor (ER4, MN 3, HER-2/tj positive) Melanoma ([facility]) 2015 Macular degeneration SVT (supraventricular tachycardia) 2014 s/p cardioversion ([facility]) Family History Medical History Relation Name Comments Cancer Brother testicular cancer l ate 30's to early 40's Cancer-Breast Maternal Aunt dx in her 50's Cancer Sister Multiple Myeloma dx in her late 40's early 50's Relation Name Status Comments Brother Maternal Aunt Sister Alive Social History Date Tobacco Use Types Packs/Day Years Used Never Smoker Smokeless Tobacco: Never Used Comments Alcohol Use Standard Drinks/Week on occasion Yes 1 (1 standard drink = 0.6 o z pure alcohol) Alcohol Habits Answer Date Recorded How often do you have a drink containing alcohol? No t asked How many drinks containing alcohol do you have on No t asked a typical day when you are drinking? How often do you have six or more drinks on one Not asked occasion? Comment: on occasion 11/18/2013 Sex Assigned at Date Recorded Not on file Last Filed Vital Signs Reading Time Taken Comments Vital Sign 179/74 12/26/2020 8:59 AM CDT Blood Pressure 54 12/26/2020 8:59 AM CDT Pulse 36.7 C (98 F) 12/26/2020 8:59 AM CDT Temperature 17 12/26/2020 8:59 AM CDT Respiratory Rate 98% 12/26/2020 8:59 AM CDT Oxygen Saturation - - Inhaled Oxygen Concentration 111.8 kg (246 lb 6.4 oz) 12/26/2020 8:59 AM CDT Weight 161.9 cm (5' 3.75") 12/26/2020 8:59 AM CDT Height 42.63 12/26/2020 8:59 AM CDT Body Mass Index Plan of Treatment Health Maintenance Due Date Last Done Comments MEDICARE ANNUAL WELLNESS 1950 VISIT DTAP/TDAP VACCINES (1 - 1969 Tdap) HEPATITIS C SCREENING 1969 PHYSICAL (COMPREHENSIVE) 1969 EXAM SHINGLES RECOMBINANT 2001 VACCINE (1 of 2) BREAST CANCER SCREENING 06/09/2014 06/09/2013 OSTEOPOROSIS 2016 SCREENING/MONITORING PNEUMONIA (PPSV23) 2016 VACCINE (1 of 1 - PPSV23) INFLUENZA VACCINE 06/21/2021 06/09/2013 COLORECTAL CANCER 08/09/2023 08/09/2013 SCREENING (Declined) Implants Device Identifier Shelf Expiration Date Model / Serial / L ot Implanted Type Area Manufactur er 05/21/2023 [id number] / NA / [id number] M[employer] Parietex 6.3x4in Right: Inguinal COVIDI EN Right Flexible Lateral Slit - Sna LTD Implanted: Qty: 1 on 05/03/2019 by Efrain Reyes Jr., MD at [facility] Results Not on filefrom Last 3 Months Insurance Type Payer Benefit Subscriber ID Effective Phone Address Plan / Dates Group Medicare MEDICARE MEDICARE [id number] 2016-P PART A AND resent B [employer] [place] OF [id number] 2016-P [place] melvin [phone] (Home) [place] [phone] Advance Directives Patient Staff Scientist Explanation Type Date Recorded Advance 12/27/2015 10:04 AM Directive/DPOA Advance 05/03/2019 12:00 AM Directive/DPOA
--- NOTE | 2021-06-03 12:55 | ED Upper Extremity ---
General Chief Complaint: Upper Extremity Stated Complaint: LT SHOULDER INJ Nursing Triage Note: PT ARRIVED BY EMS FOR FALL WITH SHOULDER PAIN. PT TRIPPED AND FELL AT DOG POUND. PT REPORTS LITTLE TO NO PAIN WITHOUT RANGE OF MOTION. EMS PLACED SLING AND SWOTH. PT HOLDING LEFT ARM IN POSITION OF COMFORT. PT HAS SMALL BRUISE ON LEFT FOREHEAD APPROX 4CM BY 2CM. PT DENIES ANY LOSS OF CONSCIOUSNESS OR TAKING BLOOD THINNERS. History of Present Illness Date Seen by Provider: Jun 03, 2021 Time Seen by Provider: 12:50 Initial Comments 8-year female presents with left shoulder pain. See nurse's note above. She w as walking down some steps and fell forward landing on her left upper extremity with an outstretched arm. EMS was called and on arrival they splinted her left upper extremity, no gross deformity was noted. Patient also states she hit her forehead. She denies loss of consciousness or headache or confusion. Denies any neck, back or lower extremity injury / pain Allergies and Home Medications Allergies Coded Allergies: No Known Drug Allergies (Unverified , 06/04/20) Patient Home Medication List Home Medication List Reviewed: Yes Acetaminophen (Tylenol Extra Strength) 500 Mg Tablet, 500-1,000 MG PO Q8H PRN for PAIN-MILD (1-4), (Reported) Entered as Reported by: MARILEE SNOW on 04/17/21 1501 Aspirin (Aspirin EC) 81 Mg Tablet.dr, 81 MG PO DAILY Prescribed by: SONIDO OLGUIN on 04/20/21 1021 Atorvastatin Calcium (Lipitor) 40 Mg Tablet, 40 MG PO HS Prescribed by: SONIDO OLGUIN on 04/20/21 1021 Hydrocodone/Acetaminophen (Hydrocodone-Acetamin 5-325 mg) 1 Each Tablet, 1 EACH PO Q6H Prescribed by: PRIYANK TRIPLETT on 06/03/21 1313 Ibuprofen (Ibuprofen) 200 Mg Tablet, 400-600 MG PO Q8H PRN for PAIN-MILD (1-4), (Reported) Entered as Reported by: MARILEE SNOW on 04/17/21 1501 Ibuprofen (Ibuprofen) 800 Mg Tablet, 800 MG PO Q8H PRN for PAIN Prescribed by: PRIYANK FREDERICKSTVELIA on 06/03/21 1312 Metoprolol Succinate (Metoprolol Succinate) 100 Mg Tab.er.24h, 100 MG PO BID, (Reported) Entered as Reported by: MARILEE SNOW on 04/17/21 1501 Multivitamin (Multivitamin) 1 Each Tablet, 1 EACH PO HS, (Reported) Entered as Reported by: MARILEE SNOW on 04/17/21 1501 Vit C/E/Zn/Coppr/Lutein/Zeaxan (Preservision Areds 2 Softgel) 1 Each Capsule, 1 EACH PO HS, (Reported) Entered as Reported by: MARILEE SNOW on 04/17/21 1501 Review of Systems Constitutional: No fever, No malaise, No weakness EENTM: No ear discharge, No ear pain, No vision loss, No epistaxis, No nose congestion Respiratory: No cough, No short of breath Cardiovascular: No chest pain, No palpitations, No syncope Gastrointestinal: No abdominal pain, No vomiting Musculoskeletal: No back pain; joint pain (left shoulder); No joint swelling, No neck pain Skin: other (scrape to left forehead) Psychiatric/Neurological: Denies Headache, Denies Numbness, Denies Paresthesia Past Xupbokl-Qeasqm-Siflcb Hx Patient Social History Tobacco Use?: No Seasonal Allergies Seasonal Allergies: No Past Medical History Surgeries: Yes (Bilateral Mastectomy with reconstruction, L Axilla lymph node bx) Breast, Hysterectomy Respiratory: No Cardiac: Yes (SVT conversion 2013) 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, Irregular Heartbeat Neurological: No 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 CHOPPER History: Hysterectomy Genitourinary: No Gastrointestinal: No Musculoskeletal: Yes (Dislocation R shoulder hx, R rotator cuff repair) Endocrine: No HEENT: No Cancer: Yes (Malignant melanoma arm, Left breast CA) Breast, Melanoma Did You Recieve Any Treatments: Yes What Type of Treatment Did You: Surgical Intervention Psychosocial: No Integumentary: No Blood Disorders: No Family Medical History No Pertinent Family Hx Physical Exam Vital Signs Vital Signs - First Documented 06/03/21 12:42 Temp 36.9 Pulse 80 Resp 14 B/P (MAP) 146/86 (106) Pulse Ox 97 O2 Delivery Room Air Capillary Refill : Less Than 3 Seconds Height, Weight, BMI Height: '" Weight: lbs. oz. kg; 40.00 BMI Method: General Appearance: WD/WN, no apparent distress HEENT: PERRL/EOMI, normal ENT inspection, other (small abrasion without contusion or induration left forehead) Neck: non-tender, supple Cardiovascular: regular rate, rhythm, no edema, no JVD Respiratory: chest non-tender, lungs clear Gastrointestinal: non tender, soft Back: normal inspection, no CVA tenderness, no vertebral tenderness Shoulder: bone tenderness (diffuse, left shoulder area without Point TTP), limited ROM, pain, soft tissue tenderness Elbow/Forearm: normal inspection, non-tender, no evidence of injury, normal ROM Wrist: Yes normal inspection, Yes non-tender, Yes no evidence of injury, Yes normal ROM Hand: normal inspection, non-tender, no evidence of injury, normal ROM Neurologic/Tendon: normal sensation, normal motor functions, normal tendon func tions Neurologic/Psychiatric: armhole sewer II-XII nml as tested, no motor/sensory deficits, alert, normal mood/affect, oriented x 3 Skin: normal color, warm/dry Progress/Results/Core Measures Results/Orders My Orders Orders - PRIYANK TRIPLETT DO Shoulder 3 View Left (06/03/21 12:50) Vital Signs/I&O 06/03/21 12:42 Temp 36.9 Pulse 80 Resp 14 B/P (MAP) 146/86 (106) Pulse Ox 97 O2 Delivery Room Air Blood Pressure Mean: 106 Diagnostic Imaging Diagonstic Imaging: Xray Comments Date of Exam:06/03/21 SHOULDER 3 VIEW LEFT INDICATION: Fall with left shoulder pain. AP, oblique, and transscapular views left shoulder are obtained. No fracture or dislocation is seen. There is no acute bony abnormality. There are moderate degenerative findings of the AC joint and glenohumeral joint IMPRESSION: Degenerative changes with no acute abnormality. Dictated on workstation # [id number] Dict: 06/03/21 1310 Trans: 06/03/21 1312 CVB [id number] Interpreted by: JIMMY SALEH MD Electronically signed by: Reviewed: Reviewed by Me (occult non-displaced proximal clavicle shaft fracture ) Departure Impression Primary Impression: Fx clavicle shaft-closed Qualified Codes: S42.025A - Nondisplaced fracture of shaft of left clavicle, initial encounter for closed fracture Disposition: 01 HOME, SELF-CARE Condition: Stable Departure-Patient Inst. Decision time for Depature: 13:11 Referrals: LEXUS AGUILERA MD (PCP/Family) Primary Care Physician Patient Instructions: How to Use a Shoulder Sling, Broken Collarbone ED Add. Discharge Instructions: Follow up with Dr Aguilera in 2 weeks. Wear your sling daily to allow for healing. All discharge instructions reviewed with patient and/or family. Voiced understanding. Scripts Ibuprofen (Ibuprofen) 800 Mg Tablet 800 MG PO Q8H PRN for PAIN, #30 TAB 0 Refills Prov: PRIYANK TRIPLETT DO 06/03/21 Hydrocodone/Acetaminophen (Hydrocodone-Acetamin 5-325 mg) 1 Each Tablet 1 EACH PO Q6H for Abdominal Pain, #15 TAB Prov: PRIYANK TRIPLETT DO 06/03/21 PRIYANK TRIPLETT DO Jun 03, 2021 12:55
[2021-06-03] MEDS ORDERED: ACHD5005 PO (13:12)
[2021-06-03] MEDS ORDERED: IBUP-1780 PO (13:12)
--- NOTE | 2021-06-03 13:13 | Diagnostic Imaging Report ---
INDICATION: Fall with left shoulder pain. AP, oblique, and transscapular views left shoulder are obtained. No fracture or dislocation is seen. There is no acute bony abnormality. There are moderate degenerative findings of the AC joint and glenohumeral joint IMPRESSION: Degenerative changes with no acute abnormality. Dictated by: Dictated on workstation # [id number]
[2021-06-03 13:33] VITALS: BP 146/86
== END 2021-06-03 13:33 | disposition home or self-care (01) ==
LOC: EDUNIT# 12:38 → ER FS 12:39
DX: S42.022A Displaced fracture of shaft of left clavicle, initial encounter for closed fracture (principal); S00.81XA Abrasion of other part of head, initial encounter; I10 Essential (primary) hypertension; Z79.82 Long term (current) use of aspirin; Z79.899 Other long term (current) drug therapy; W10.8XXA Fall (on) (from) other stairs and steps, initial encounter
CPT/HCPCS: 73030; 99283; L3650